=== PATIENT | female | born 1945 | race Caucasian/White ===

== ENCOUNTER 2022-01-26 13:23 | Inpatient (IN) | payer MEDICARE, OTHER ==
[~2022-01-26] VITALS: Ht 152.4 cm; Wt 48.5 kg
--- NOTE | 2022-01-26 13:30 | NUR ---
COVID SWAB DONE AND SENT TO LAB
--- NOTE | 2022-01-26 13:35 | NUR ---
BLOOD SAMPLES OBTAINED AND SENT TO LAB
[2022-01-26] MEDS ORDERED: CRAN425C6 PO (13:57)
[2022-01-26] MEDS ORDERED: FERR325T23 PO (13:57)
[2022-01-26] MEDS ORDERED: DIPH25CA51 PO (13:57)
[2022-01-26] MEDS ORDERED: IPRA3AMP23 IH (13:57)
[2022-01-26] MEDS ORDERED: PANT40TA49 PO (13:57)
[2022-01-26] MEDS ORDERED: ACET-868 PO (13:57)
[2022-01-26] MEDS ORDERED: GABA-532 PO (13:57)
[2022-01-26] MEDS ORDERED: LOSA100T31 PO (13:57)
[2022-01-26] MEDS ORDERED: ACET-2605 PO (13:57)
[2022-01-26] MEDS ORDERED: BACL10TA PO ×2 (13:57)
[2022-01-26] MEDS ORDERED: CICL6.6S5 TP (13:57)
[2022-01-26] MEDS ORDERED: POLY17PO4 PO (13:57)
[2022-01-26] MEDS ORDERED: DULO60CA64 PO (13:57)
[2022-01-26] MEDS ORDERED: LACT1CAP71 PO (13:57)
[2022-01-26] MEDS ORDERED: GUAI400T93 PO (13:57)
[2022-01-26] MEDS ORDERED: SENN-261 PO (13:57)
[2022-01-26] MEDS ORDERED: VERA240T14 PO (13:57)
[2022-01-26] MEDS ORDERED: MELA1TAB47 PO (13:57)
[2022-01-26] MEDS ORDERED: BUPR2TAB3 SL (13:57)
[2022-01-26] MEDS ORDERED: POTA20TA83 PO (13:57)
[2022-01-26] MEDS ORDERED: BENZ200C53 PO (13:57)
[2022-01-26] MEDS ORDERED: CRAN3875 PO (13:57)
[2022-01-26] MEDS ORDERED: LIDO30AD10 TP (13:57)
[2022-01-26 14:02] LABS: BASOPHILS # (AUTO) 0.1 K/uL (0.0-0.2); BASOPHILS % (AUTO) 0.3 % (0.0-2.0); HEMATOCRIT 37 % (33-45); HEMOGLOBIN 12.2 g/dL (11.5-14.8); LYMPHOCYTES # (AUTO) 4.3 K/uL (0.8-4.8); LYMPHOCYTES % (AUTO) 14.4 % (20.0-44.0); MEAN CORPUSCULAR HGB CONC 33 g/dl (31.0-36.0); MEAN CORPUSCULAR VOLUME 100 fL (82-100); MONOCYTES # (AUTO) 3.1 K/uL (0.1-1.30); MONOCYTES % (AUTO) 10.4 % (2.0-12.0); NEUTROPHILS # (AUTO) 22.2 K/uL (1.8-8.9); NEUTROPHILS % (AUTO) 74.9 % (43.0-81.0); PLATELET COUNT (AUTO) 453 K/uL (150-450); RED BLOOD CELL COUNT(AUTO) 3.73 MIL/uL (4.0-5.2); WHITE BLOOD COUNT (AUTO) 29.6 K/uL (4.3-11.0)
[2022-01-26 14:11] LABS: CALCIUM, SERUM 8.4 mg/dL (8.5-10.1); CARBON DIOXIDE 26 mmol/L (21-32); CHLORIDE 106 mmol/L (98-107); CREATININE 1.4 mg/dL (0.6-1.3); GLUCOSE 135 mg/dL (74-106); POTASSIUM 3.1 mmol/L (3.5-5.1); SODIUM SERUM 145 mmol/L (136-145); UREA NITROGEN, BLOOD 21 mg/dL (7-18)
[2022-01-26 14:26] LABS: ALANINE AMINOTRANSFERASE 14 U/L (12-78); ALBUMIN 2.8 g/dL (3.4-5.0); ALKALINE PHOSPHATASE 131 U/L (46-116); ASPARTATE AMINOTRANSFERASE 20 U/L (15-37); BILIRUBIN,DIRECT 0.3 mg/dL (0.0-0.2); BILIRUBIN,TOTAL 0.8 mg/dL (0.2-1.0); TOTAL PROTEIN, SERUM 7.3 g/dL (6.4-8.2)
[2022-01-26] MEDS ORDERED: VANCOMYCIN 1 GM in IV D5W 250 ML IV ONE (14:30)
[2022-01-26] MEDS ORDERED: IV NS 0.9% 1,000 ML BAG IV ONE (14:30)
[2022-01-26] MEDS ORDERED: CEFEPIME 1 GM in IV D5W 50 ML IV ONE (14:30)
--- NOTE | 2022-01-26 14:57 | NUR ---
URINE COLLECTED AND SENT TO LAB
[2022-01-26] MEDS ORDERED: PIPERACILLIN /TAZOBACTAM 3.375 G in IV D5W 50 ML IV ONE (15:00)
[2022-01-26] MEDS ORDERED: MAG HYDROX/AL HYDROX/SIMETH 30 ML UDC PO PRN (16:30)
[2022-01-26] MEDS ORDERED: Medication Not On Formulary EA (Melatonin 1 MG) PO PRN (16:30)
[2022-01-26] MEDS ORDERED: ACETAMINOPHEN ES 500 MG TABLET PO PRN ×2 (16:30)
[2022-01-26] MEDS ORDERED: Z GUARD REMEDY 4 OZ OINT TP PRN (16:30)
[2022-01-26] MEDS ORDERED: ONDANSETRON HCL/PF 4 MG/2 ML VIAL IVP PRN (16:30)
[2022-01-26] MEDS ORDERED: CEFEPIME 1 GM in IV D5W 50 ML IV SCH (16:30)
[2022-01-26] MEDS ORDERED: MAGNESIUM HYDROXIDE 30 ML UDC PO PRN (16:30)
[2022-01-26] MEDS ORDERED: ZOLPIDEM TARTRATE 5 MG TABLET PO PRN (16:30)
[2022-01-26] MEDS ORDERED: ACETAMINOPHEN 325 MG TABLET PO PRN (16:30)
--- NOTE | 2022-01-26 16:40 | NUR ---
RT SUCTIONED PT, PT FABY WELL. PT TO CT VIA RSONDRA
--- NOTE | 2022-01-26 16:57 | NUR ---
CALLED NURSING SUP FOR MERE BED.
[2022-01-26] MEDS ORDERED: BUPRENORPHINE HCL 2 MG TAB.SUBL SL SCH (17:00)
[2022-01-26] MEDS ORDERED: Medication Not On Formulary EA (Cran/Vitc/Mannose/Inulin/Brom (Uti-Stat Liquid) 3,875 MG PO SCH (17:00)
--- NOTE | 2022-01-26 17:00 | NUR ---
PT RR EVEN & UNLABORED. PT EYES CLOSED WILL OPEN WITH VERBAL STIMULI. ON TELE, ST. WILL CONT TO MONITOR.
[2022-01-26 17:21] LABS: ABG BASE EXCESS -6.3 mmol/L; ABG PCO2 38.9 mmHg (35.0-45.0); ABG PH 7.315 (7.350-7.450); ABG PO2 109.7 mmHg (75.0-100.0); COHb 0.3 % (0.5-1.5); MetHb 0.3 % (0.0-1.5); O2Hb 97.1 % (94.0-97.0); SITE, ABG Right Radial
[2022-01-26] MEDS ORDERED: HYDROMORPHONE MDV 1 MG in IV D5W 50 ML IV PRN (17:30)
[2022-01-26] MEDS ORDERED: LIDOCAINE VISCOUS 2% UD 15 ML UDC MM ONE (17:30)
--- NOTE | 2022-01-26 17:35 | NUR ---
RT PT DESATTING SUCTIONED THICK WHILE COPIOUS AMOUNT OF SECRETIONS TO KEEP SATS OVER 90%, NOSE BLEEDING FROM NT SX, ATTEMPTED TO PLACE NASAL TRUMPET, UNSUCCESSFUL ASKED FOR LIDOCAINE JELLY ORDER, ABG DONE SEE RESULTS
[2022-01-26] MEDS ORDERED: HYDROMORPHONE 1 MG/1 ML DISP.SYRIN ONE (17:37)
[2022-01-26] MEDS ORDERED: LIDOCAINE VISCOUS 2% UD 15 ML UDC ONE (17:37)
--- NOTE | 2022-01-26 17:52 | NUR ---
UPDATED NURSING SUP FOR TELE BED.
[2022-01-26] MEDS ORDERED: Medication Not On Formulary EA (Ipratropium/Albuterol Sulfate (Duoneb 2.5-0.5 Mg/3 Ml So IH SCH (18:00)
[2022-01-26] MEDS ORDERED: HYDROMORPHONE 1 MG/1 ML DISP.SYRIN IV ONE (18:00)
[2022-01-26 18:28] LABS: BILIRUBIN,URINE NEGATIVE (NEGATIVE); COLOR,URINE YELLOW (YELLOW); LEUKOCYTE ESTERASE ,URINE NEGATIVE (NEGATIVE); NITRITE, URINE NEGATIVE (NEGATIVE); PROTEIN,URINE NEGATIVE (NEGATIVE); UGLUCOSE NEGATIVE (NEGATIVE); UROBILINOGEN,URINE 0.2 EU/dL (0.2)
--- NOTE | 2022-01-26 18:43 | NUR ---
NURSING SUP WILL GIVE BED AFTER 1999 DUE TO STAFFING.
--- NOTE | 2022-01-26 19:45 | NUR ---
RECEIVED REPORT FROM CATALINA CASTRO FOR BRIGIDO
[2022-01-26] MEDS ORDERED: ALBUTEROL FS 2.5 MG/0.5 ML VIAL.NEB ONE (19:52)
[2022-01-26] MEDS ORDERED: IPRATROPIUM NEB FS 0.5 MG/2.5 ML AMPUL.NEB ONE (19:52)
[2022-01-26] MEDS: IPRATROPIUM NEB FS 0.5 MG/2.5 ML AMPUL.NEB NEB SCH (19:59)
[2022-01-26] MEDS: ALBUTEROL FS 2.5 MG/0.5 ML VIAL.NEB NEB SCH (19:59)
[2022-01-26] MEDS: BACLOFEN (10 MG) 10 MG TABLET PO SCH (20:00)
--- NOTE | 2022-01-26 20:03 | NUR ---
RT nt suction performed. copius thick yellow secretions suctioned, followed by some bleeding, due to desaturation. post saturation 99%. pt doing well. rn aware.
--- NOTE | 2022-01-26 20:03 | NUR ---
PT RESTING CONFORTABLY IN BED, AAOX4. O2 SAT 97. BLANKETS PROVIDED FOR CONFORT. PT DENIES ANY PAIN. WILL CONTINUE TO MONITOR
--- NOTE | 2022-01-26 20:12 | NUR ---
MAGALYS BROWN DAUGHTER - [phone]
[2022-01-26] MEDS ORDERED: BACLOFEN (10 MG) 10 MG TABLET ONE (20:25)
[2022-01-26] MEDS ORDERED: GABAPENTIN 300 MG CAPSULE ONE (21:22)
[2022-01-26] MEDS: GABAPENTIN 100 MG CAPSULE PO SCH (21:25)
[2022-01-26] MEDS: VERAPAMIL SR 120 MG TABLET.SA PO SCH (21:34)
[2022-01-26] MEDS: LOSARTAN POTASSIUM 50 MG TABLET PO SCH (22:00)
[2022-01-26] MEDS ORDERED: LOSARTAN POTASSIUM 50 MG TABLET ONE (22:22)
[2022-01-26] MEDS ORDERED: DULOXETINE HCL 30 MG CAPSULE.DR ONE (22:23)
--- NOTE | 2022-01-26 22:31 | NUR ---
LOSARTAN HELD, NON ADMIN DUE TO BP OF 105/64 NOTED
[2022-01-26] MEDS: DULOXETINE HCL 30 MG CAPSULE.DR PO SCH (22:40)
--- NOTE | 2022-01-26 22:54 | NUR ---
REPORT GIVEN TO IDALIA CASTRO FOR BRIGIDO
--- NOTE | 2022-01-26 23:00 | NUR ---
APPLICATIONS PROGRAMMER NOTE ADMIT 77 YEAR OLD FEMALE TO MERE UNIT AT ROOM 104 ON MERE MONITORING,ADMITTING DIAGNOSES IS SEPSIS ALERT ORIENTED X2 VERBALLY RESPONSIVE ON 15 LITER NON RE BREATHER MASK O2:90-91% IV SITE IS ON LEFT AC AND RIGHT FOREARM INTACT PATENT SAFETY MEASURE IMPLEMENT,HEAD OF THE BED ELEVATED BED IN LOW POSITION AND LOCKED,CALL LIGHT WITHIN REACH CONTINUE TO MONITOR.
--- NOTE | 2022-01-26 23:02 | NUR ---
RN NOTE PATIENT BILATERAL LOWER AND UPPER EXTERMINATES ARE CONTRACTED,CONTINUE TO MONITOR.
[2022-01-26] MEDS: IV NS 0.9% 1,000 ML IV PRN (23:44)
[2022-01-27] VITALS: BP_SYST 119; BP_SYST 91; BP_DIAS 52; BP_DIAS 72
[2022-01-27] MEDS: IPRATROPIUM NEB FS 0.5 MG/2.5 ML AMPUL.NEB NEB SCH ×4 (02:11→20:49)
[2022-01-27] MEDS: ALBUTEROL FS 2.5 MG/0.5 ML VIAL.NEB NEB SCH ×4 (02:11→20:48)
[2022-01-27 04:00] VITALS: BP 96/57
[2022-01-27 06:10] LABS: BASOPHILS % (AUTO) 0.2 % (0.0-2.0); HEMATOCRIT 31 % (33-45); HEMOGLOBIN 10.5 g/dL (11.5-14.8); LYMPHOCYTES # (AUTO) 1.8 K/uL (0.8-4.8); LYMPHOCYTES % (AUTO) 7.8 % (20.0-44.0); MEAN CORPUSCULAR HGB CONC 34 g/dl (31.0-36.0); MEAN CORPUSCULAR VOLUME 101 fL (82-100); MONOCYTES # (AUTO) 2.8 K/uL (0.1-1.30); MONOCYTES % (AUTO) 11.8 % (2.0-12.0); NEUTROPHILS # (AUTO) 18.8 K/uL (1.8-8.9); NEUTROPHILS % (AUTO) 80.2 % (43.0-81.0); PLATELET COUNT (AUTO) 362 K/uL (150-450); WHITE BLOOD COUNT (AUTO) 23.5 K/uL (4.3-11.0)
[2022-01-27 06:13] LABS: CALCIUM, SERUM 7.3 mg/dL (8.5-10.1); MAGNESIUM 1.4 mg/dL (1.8-2.4); PHOSPHORUS 3.7 mg/dL (2.5-4.9)
--- NOTE | 2022-01-27 07:15 | NUR ---
RN NOTE PATIENT REMAINS ON ALERT ORIENTED X2 ON 15 L NON RE BREATHER MASK O2:98% ALL DUE MEDS GIVEN MD ORDERED KEPT CLEAN AND DRY ALL THE TIME,ALL NEEDS MET ENDORSE NEXT COMING SHIFT FOR CONTINUATION OF CARE.
[2022-01-27] MEDS: PANTOPRAZOLE 40 MG TABLET.DR PO SCH (07:30)
--- NOTE | 2022-01-27 07:30 | NUR ---
TD RN AM NOTES PT IN BED, LETHARGIC, RESPONDS TO TOUCH AND NAME, A/OX1, FOLLOWS SIMPLE COMMANDS, ON 15 NRM O2 SAT 97%, RESPIRATION UNLABORED, NO SIGNS OF PAIN, LEFT AC 18 G WITH NS AT 90 ML/HR INFUSING WELL, RT FA 18G IV ACCESS FLUSHES WELL, BOTH SITE CLEAR, BED BOUND, SEE NURSING FLOWSHEET FOR SKIN ISSUES. BLE EXTREMITIES, CONTRACTED. SAFETY MEASURES IN PLACE, PATIENT BED ALARM IS ON. HEAD OF BED ELEVATED. BED IS LOCKED, IN LOWEST POSITION AND SIDE RAILS UP. CALL LIGHT WITHIN REACH OF THE PATIENT. APPLICABLE ISOLATION PRECAUTIONS IN PLACE. WILL CONTINUE TO MONITOR AND REASSESS FOR ANY CHANGES AND WILL CARRY OUT ANY ONGOING AND ACTIVE MD ORDER.
[2022-01-27 08:00] VITALS: BP 94/57
[2022-01-27] MEDS: ACIDOPHILUS/BULGARICUS 1 EACH TAB.CHEW PO SCH (08:27)
[2022-01-27] MEDS: FERROUS SULFATE (325 MG) 325 MG/TAB TABLET PO SCH (08:27)
[2022-01-27] MEDS: BACLOFEN (10 MG) 10 MG TABLET PO SCH ×2 (08:27→17:35)
[2022-01-27] MEDS: POLYETHYLENE GLYCOL 3350 17 GM POWD.PACK PO SCH (08:28)
[2022-01-27] MEDS: VERAPAMIL SR 120 MG TABLET.SA PO SCH ×2 (08:28→21:00)
[2022-01-27] MEDS: GABAPENTIN 100 MG CAPSULE PO SCH ×2 (08:28→21:00)
[2022-01-27] MEDS: SENNOSIDES 8.6 MG TABLET PO SCH (08:28)
[2022-01-27] MEDS: VANCOMYCIN 500 MG in IV D5W 100ml IV SCH (08:29)
[2022-01-27] MEDS: LIDOCAINE 5% (PATCH) 1 EA PATCH TP SCH (08:41)
--- NOTE | 2022-01-27 09:30 | NUR ---
RN NOTES PER YAQUELIN BUCK NP PATIENT NPO UNTIL SWALLOW EVAL DONE
[2022-01-27] MEDS: POTASSIUM CL. PREMIX PERIPHER. 50 ML IV SCH ×6 (10:40→15:51)
[2022-01-27] MEDS: Magnesium 1GM/D5W 100ML PREMIX 100 ML IV SCH ×4 (10:40→13:43)
[2022-01-27] MEDS: ENOXAPARIN SODIUM 30 MG/0.3 ML DISP.SYRIN SQ SCH (10:51)
[2022-01-27] MEDS: IV NS 0.9% 1,000 ML IV PRN (11:22)
[2022-01-27 12:00] VITALS: BP 98/44
[2022-01-27] MEDS: CEFEPIME 2 GM in IV D5W 100 ML IV SCH (15:51)
[2022-01-27 16:00] VITALS: BP 84/55
[2022-01-27 17:00] VITALS: BP 84/55
--- NOTE | 2022-01-27 18:26 | NUR ---
TD RN CLOSING NOTES PT IN BED, LETHARGIC, RESPONDS TO TOUCH AND NAME, A/OX1, FOLLOWS SIMPLE COMMANDS, ON 15 NRM O2 SAT 94%-96%, RESPIRATION UNLABORED, NO SIGNS OF PAIN, LEFT AC 18 G WITH NS AT 90 ML/HR INFUSING WELL, RT FA 18G IV ACCESS FLUSHES WELL, BOTH SITE CLEAR, BED BOUND, BLE EXTREMITIES, CONTRACTED. SAFETY MEASURES IN PLACE, PATIENT BED ALARM IS ON. HEAD OF BED ELEVATED. BED IS LOCKED, IN LOWEST POSITION AND SIDE RAILS UP. CALL LIGHT WITHIN REACH OF THE PATIENT. APPLICABLE ISOLATION PRECAUTIONS IN PLACE. PM CARE DONE EARLIER. ALL NEEDS MET AT THIS TIME. WILL ENDORSE TO NEXT SHIFT FOR BRIGIDO. PATIENT REMAINS TO BE SEEN BY SPEECH THERAPIST FOR SWALLOW EVAL. PER YAQUELIN BUCK, IF FAILED SWALLOW EVAL, MAY INSERT NGT FOR FEEDING AND MEDICATIONS.
[2022-01-27] MEDS: DULOXETINE HCL 30 MG CAPSULE.DR PO SCH (22:00)
[2022-01-27] MEDS: LOSARTAN POTASSIUM 50 MG TABLET PO SCH (22:00)
--- NOTE | 2022-01-27 22:00 | NUR ---
RN NOTES, PO MEDICATIONS NOT ADMINISTERED, PATIENT NPO, WILL HAVE SWALLOW EVALUATION TOMORROW, PATIENT IN NRM AT 15LPM, WITH OPTIMAL O2 SAT, FLUCTUATES THE LOWEST I'VE SEEN 87-95, NO SOB/DISTRESS AT THIS TIME, BUT DESATURATES QUICKLY, BED LOCKED AND LOWEST POSITION, CALL LIGHT W/I REACH, S/R BED X2 UP, PATIENT DRY AND CLEAN, WILL CONTINUE TO MONITOR CLOSELY,
[2022-01-28] VITALS (10 sets, daily range): BP systolic 98–151; BP diastolic 57–76
[2022-01-28] MEDS: ALBUTEROL FS 2.5 MG/0.5 ML VIAL.NEB NEB SCH ×4 (01:36→20:22)
[2022-01-28] MEDS: IPRATROPIUM NEB FS 0.5 MG/2.5 ML AMPUL.NEB NEB SCH ×4 (01:36→20:22)
[2022-01-28] MEDS: VANCOMYCIN 500 MG in IV D5W 100ml IV SCH ×2 (03:16→21:06)
[2022-01-28] MEDS: IV NS 0.9% 1,000 ML IV PRN ×2 (04:43→16:20)
--- NOTE | 2022-01-28 06:45 | NUR ---
TD RN CLOSING NOTES, PATIENT IN BED, AWAKE A/OX2, ABLE TO VERBALIZE SIMPLE NEEDS, ON 15 NRM O2 SAT 94%-100%, NO SOB/ACUTE DISTRESS NOTED THROUGHOUT THE NIGHT, NSR IN TELE MONITOR RT FA 18G IV ACCESS PATENT AND INTACT, REMAINS STABLE ON NRM AT 15LPM, WITH STABLE VITAL SIGN, ALL SAFETY MEASURES IN PLACE, PATIENT BED ALARM IS ON. HEAD OF BED ELEVATED, BED IS LOCKED AND LOWEST POSITION , AND SIDE RAILS UP X2, CALL LIGHT WITHIN REACH, CONTINUE NPO, WILL HAVE SWALLOW EVAL TODAY, WILL ENDORSE CONTINUITY OF CARE TO ONCOMING NURSE.
[2022-01-28 07:10] LABS: CALCIUM, SERUM 8.3 mg/dL (8.5-10.1); CREATININE 0.7 mg/dL (0.6-1.3); MAGNESIUM 2.6 mg/dL (1.8-2.4); POTASSIUM 3.4 mmol/L (3.5-5.1)
[2022-01-28 07:24] LABS: BASOPHILS % (AUTO) 0.1 % (0.0-2.0); HEMATOCRIT 32 % (33-45); HEMOGLOBIN 10.9 g/dL (11.5-14.8); LYMPHOCYTES # (AUTO) 1.1 K/uL (0.8-4.8); LYMPHOCYTES % (AUTO) 6.3 % (20.0-44.0); MEAN CORPUSCULAR HGB CONC 34 g/dl (31.0-36.0); MEAN CORPUSCULAR VOLUME 104 fL (82-100); MONOCYTES # (AUTO) 1.6 K/uL (0.1-1.30); MONOCYTES % (AUTO) 9.1 % (2.0-12.0); NEUTROPHILS # (AUTO) 14.7 K/uL (1.8-8.9); NEUTROPHILS % (AUTO) 84.5 % (43.0-81.0); PLATELET COUNT (AUTO) 417 K/uL (150-450); RED BLOOD CELL COUNT(AUTO) 3.08 MIL/uL (4.0-5.2); WHITE BLOOD COUNT (AUTO) 17.4 K/uL (4.3-11.0)
[2022-01-28] MEDS: PANTOPRAZOLE 40 MG TABLET.DR PO SCH (07:30)
--- NOTE | 2022-01-28 08:00 | NUR ---
MERE RN NOTE PATIENT IN BED AWAKE , ALERT ORIENTED WITH CONFUSION , ON 5L NC AT THIS TIME RT AT BEDSIDE SATURATING 93-95%, ON BREATHING TX , ON TELE MONITOR SR HR 86, ON NPO AT THIS TIME ON IVF ORDERED, BED IN LOWEST AND LOCKED POSITION , WILL CONT TO MONITOR CLOSELY, CALL LIGHT WITHIN REACH
--- NOTE | 2022-01-28 08:05 | NUR ---
pt. is awake and alert changed oxygen setup from non rebreather to nasal cannula @ 5 lpm o2 flow and nasally suctioned very large amount pale yellow thick secretions. spo2 after sxn: 95% hr 90 bpm and no increase work of breathing noted. Addendum: 01/28/22 at 0808 by SCOTTIE COTTO RT Amended: Links added.
[2022-01-28] MEDS: VERAPAMIL SR 120 MG TABLET.SA PO SCH ×2 (09:00→21:07)
[2022-01-28] MEDS: ACIDOPHILUS/BULGARICUS 1 EACH TAB.CHEW PO SCH (09:00)
[2022-01-28] MEDS: ENOXAPARIN SODIUM 30 MG/0.3 ML DISP.SYRIN SQ SCH (09:00)
[2022-01-28] MEDS: GABAPENTIN 100 MG CAPSULE PO SCH ×2 (09:00→21:06)
[2022-01-28] MEDS: BACLOFEN (10 MG) 10 MG TABLET PO SCH ×2 (09:00→17:44)
[2022-01-28] MEDS: FERROUS SULFATE (325 MG) 325 MG/TAB TABLET PO SCH (09:00)
[2022-01-28] MEDS: SENNOSIDES 8.6 MG TABLET PO SCH (09:00)
[2022-01-28] MEDS: POLYETHYLENE GLYCOL 3350 17 GM POWD.PACK PO SCH (09:00)
--- NOTE | 2022-01-28 09:00 | NUR ---
analytical lab analyst notes Rt at bedside, nasalpharyngeal suction done, large amount of yellow thick secretions, placed on 5 liter via nasal cannula, o2 sat 93%,DR Carrasco made round,updated patient condition
[2022-01-28] MEDS: LIDOCAINE 5% (PATCH) 1 EA PATCH TP SCH (09:15)
[2022-01-28] MEDS ORDERED: APIXABAN 5 MG TABLET PO SCH (09:30)
[2022-01-28] MEDS: POTASSIUM CL. PREMIX PERIPHER. 50 ML IV SCH ×2 (10:44→11:50)
--- NOTE | 2022-01-28 11:00 | NUR ---
HOUSEKEEPING ASSISTANT NOTE DR GUTIERRES AT BEDSIDE AWARE THAT PATIENT STILL NPO WILL F\U WITH ST
--- NOTE | 2022-01-28 12:39 | NUR ---
teletype operator note called to st stated that will came sometimes today spoke with ronny
--- NOTE | 2022-01-28 13:12 | NUR ---
RIGGING SUPERVISOR NOTE AWAITING FOR ST FOR SWALLOW EVAL
--- NOTE | 2022-01-28 14:50 | NUR ---
spar machine operator note nursing swallow ryan done patient is able to eat puree diet, spoke to DR Robert with order of puree diet, still awaiting for ST to evaluate the patient Addendum: 01/28/22 at 1527 by AYLA BAILEY RN SPOKE WITH RAÚL PRINCIPAL BIOINFORMATICS SPECIALIST OF ST ,STATED THAT ST NOT AVAILABLE YET WILL F\U
[2022-01-28] MEDS: CEFEPIME 2 GM in IV D5W 100 ML IV SCH (15:10)
--- NOTE | 2022-01-28 17:53 | NUR ---
telegraphic typewriter operator note able to swallow puree diet, with occasional cough , ate 15% of diet
--- NOTE | 2022-01-28 18:40 | NUR ---
hydroelectric plant maintainer closing notes PT IN BED awake, A/OX1,-2FOLLOWS SIMPLE COMMANDS, ON 15 NRM O2 SAT 94%-96%, RESPIRATION UNLABORED, NO SIGNS OF PAIN, LEFT AC 18 G WITH NS AT 90 ML/HR INFUSING WELL, RT FA 18G IV ACCESS FLUSHES WELL, BOTH SITE CLEAR, BED BOUND, BLE EXTREMITIES, CONTRACTED. SAFETY MEASURES IN PLACE, PATIENT BED ALARM IS ON. HEAD OF BED ELEVATED. BED IS LOCKED, IN LOWEST POSITION AND SIDE RAILS UP. CALL LIGHT WITHIN REACH OF THE PATIENT. APPLICABLE ISOLATION PRECAUTIONS IN PLACE. PM CARE DONE EARLIER. awaiting for [facility], nursing swallow eval done patient was able to eat puree dinner.ALL NEEDS MET AT THIS TIME. WILL ENDORSE TO NEXT SHIFT FOR BRIGIDO.
--- NOTE | 2022-01-28 19:43 | NUR ---
RN OPENING NOTES RECEIVED PT IN BED, AWAKE. AOx2-3. ON 5LPM VIA NC AND TOLERATING WELL. NO SOB NOTED. NO S/SX OF RESPIRATORY DISTRESS NOTED. TELE MONITOR DETECTS SINUS RHYTHM AND SINUS TACHYCARDIA. IV ACCESS IN RAC #18 RUNNING NS @ 90 ML/HR. SAFETY PRECAUTIONS IN PLACE: BED IN LOWEST, LOCKED POSITION, SIDERAILS UPx2, AND BRAKES ON. TABLE AND CALL LIGHT WITHIN REACH. WILL CONTINUE TO MONITOR.
[2022-01-28] MEDS: LOSARTAN POTASSIUM 50 MG TABLET PO SCH (21:07)
[2022-01-28] MEDS: DULOXETINE HCL 30 MG CAPSULE.DR PO SCH (21:07)
[2022-01-28] MEDS: ENOXAPARIN SODIUM 60 MG/0.6 ML DISP.SYRIN SQ SCH (21:09)
[2022-01-29] MEDS: ALBUTEROL FS 2.5 MG/0.5 ML VIAL.NEB NEB SCH ×5 (01:30→19:55)
[2022-01-29] MEDS: IPRATROPIUM NEB FS 0.5 MG/2.5 ML AMPUL.NEB NEB SCH ×5 (01:30→19:55)
[2022-01-29 05:00] VITALS: BP 100/55
[2022-01-29] MEDS: IV NS 0.9% 1,000 ML IV PRN ×2 (05:36→17:10)
[2022-01-29 06:12] LABS: CALCIUM, SERUM 8.1 mg/dL (8.5-10.1); CREATININE 0.6 mg/dL (0.6-1.3); POTASSIUM 3.5 mmol/L (3.5-5.1)
--- NOTE | 2022-01-29 06:51 | NUR ---
RN CLOSING NOTES PT IN BED, AWAKE. AOx2-3. ON 10LPM VIA NC AND TOLERATING WELL. NO SOB NOTED. NO S/SX OF RESPIRATORY DISTRESS NOTED. TELE MONITOR DETECTS SINUS RHYTHM AND SINUS TACHYCARDIA. IV ACCESS IN RHAND #22G RUNNING NS @ 90 ML/HR. ALL NEEDS MET. PT KEPT CLEAN AND DRY. SAFETY PRECAUTIONS IN PLACE: BED IN LOWEST, LOCKED POSITION, SIDERAILS UPx2, AND BRAKES ON. TABLE AND CALL LIGHT WITHIN REACH. WILL ENDORSE TO ONCOMING SHIFT FOR BRIGIDO.
[2022-01-29] MEDS: PANTOPRAZOLE 40 MG TABLET.DR PO SCH (07:30)
--- NOTE | 2022-01-29 07:54 | NUR ---
RN OPENING NOTE PATIENT RECEIVED IN BED, AO X 2, IN NO ACUTE DISTRESS NOTED. RESPIRATORY EVEN AND UNLABORED ON TRACH AND VENTILATOR. SKIN IS WARM TO TOUCH, KEEP CLEAN/DRY, INTACT IV SITE. KEPT ELEVATED HOB FOR ENSURE AIRWAY AND ASPIRATION PRECAUTION, ALSO LOWEST POSITION OF THE BED, S/R UP X 3 FOR SAFETY. ALL SAFETY PRECAUTION APPLIED. CALL LIGHT WITHIN REACH, WILL CONTINUE TO MONITOR. Addendum: 01/29/22 at 0801 by VANESA CA RN ERROR
--- NOTE | 2022-01-29 08:01 | NUR ---
RN OPENING NOTE PATIENT RECEIVED IN BED, AO X 2, IN NO ACUTE DISTRESS NOTED. RESPIRATORY EVEN AND UNLABORED ON OXYGEN AT 5Ls VIA NC. SKIN IS WARM TO TOUCH, KEEP CLEAN/DRY, INTACT IV SITE. KEPT ELEVATED HOB FOR ENSURE AIRWAY AND ASPIRATION PRECAUTION, ALSO LOWEST POSITION OF THE BED, S/R UP X 3 FOR SAFETY. ALL SAFETY PRECAUTION APPLIED. CALL LIGHT WITHIN REACH, WILL CONTINUE TO MONITOR.
[2022-01-29 09:00] VITALS: BP 127/65
[2022-01-29] MEDS: GABAPENTIN 100 MG CAPSULE PO SCH ×2 (09:00→20:15)
[2022-01-29] MEDS: VERAPAMIL SR 120 MG TABLET.SA PO SCH ×2 (09:00→20:25)
[2022-01-29] MEDS: ACIDOPHILUS/BULGARICUS 1 EACH TAB.CHEW PO SCH (09:00)
[2022-01-29] MEDS: ENOXAPARIN SODIUM 60 MG/0.6 ML DISP.SYRIN SQ SCH (09:00)
[2022-01-29] MEDS: POLYETHYLENE GLYCOL 3350 17 GM POWD.PACK PO SCH (09:00)
[2022-01-29] MEDS: BACLOFEN (10 MG) 10 MG TABLET PO SCH ×2 (09:00→17:05)
[2022-01-29] MEDS: FERROUS SULFATE (325 MG) 325 MG/TAB TABLET PO SCH (09:00)
[2022-01-29] MEDS: SENNOSIDES 8.6 MG TABLET PO SCH (09:00)
--- NOTE | 2022-01-29 09:56 | NUR ---
PATIENT HAS NOT BEEN SWALLOW EVALUATION. WILL HOLD MED BY PHARMACY.
[2022-01-29] MEDS: LIDOCAINE 5% (PATCH) 1 EA PATCH TP SCH (10:00)
[2022-01-29 10:44] LABS: BASOPHILS % (AUTO) 0.3 % (0.0-2.0); EOSINOPHILS % (AUTO) 0.1 % (0.0-6.0); HEMATOCRIT 28 % (33-45); HEMOGLOBIN 9.2 g/dL (11.5-14.8); LYMPHOCYTES # (AUTO) 1.4 K/uL (0.8-4.8); LYMPHOCYTES % (AUTO) 9.2 % (20.0-44.0); MEAN CORPUSCULAR HGB CONC 33 g/dl (31.0-36.0); MEAN CORPUSCULAR VOLUME 99 fL (82-100); MONOCYTES # (AUTO) 1.2 K/uL (0.1-1.30); MONOCYTES % (AUTO) 7.9 % (2.0-12.0); NEUTROPHILS # (AUTO) 12.5 K/uL (1.8-8.9); NEUTROPHILS % (AUTO) 82.5 % (43.0-81.0); PLATELET COUNT (AUTO) 433 K/uL (150-450); RED BLOOD CELL COUNT(AUTO) 2.85 MIL/uL (4.0-5.2); WHITE BLOOD COUNT (AUTO) 15.1 K/uL (4.3-11.0)
[2022-01-29 10:55] LABS: CALCIUM, SERUM 7.2 mg/dL (8.5-10.1); CARBON DIOXIDE 22 mmol/L (21-32); CHLORIDE 113 mmol/L (98-107); CREATININE 0.5 mg/dL (0.6-1.3); GLUCOSE 104 mg/dL (74-106); POTASSIUM 2.9 mmol/L (3.5-5.1); SODIUM SERUM 142 mmol/L (136-145); UREA NITROGEN, BLOOD 16 mg/dL (7-18)
[2022-01-29 11:05] LABS: ALANINE AMINOTRANSFERASE 16 U/L (12-78); ALKALINE PHOSPHATASE 86 U/L (46-116); ASPARTATE AMINOTRANSFERASE 20 U/L (15-37); BILIRUBIN,TOTAL 0.7 mg/dL (0.2-1.0); TOTAL PROTEIN, SERUM 5.6 g/dL (6.4-8.2)
--- NOTE | 2022-01-29 11:33 | NUR ---
ST Bedside swallow evaluation completed: Recommending: pureed and nectar no straws meds: crushed with pureed. Follow aspiration precautions
--- NOTE | 2022-01-29 12:45 | NUR ---
PATIENT NOTED POTASSIUM LEVEL IS 2.9, ,SLIME AWARE AND NEW ORDER:40 MEQ PO X 1. NOTED AND CARRY OUT.
[2022-01-29 13:00] VITALS: BP 127/65
[2022-01-29] MEDS ORDERED: POTASSIUM CHLORIDE 20 MEQ TAB.PRT.SR PO ONE (13:00)
[2022-01-29] MEDS: VANCOMYCIN 0.75 GM in IV D5W 250 ML IV SCH (15:26)
[2022-01-29 16:18] VITALS: BP 131/80
[2022-01-29] MEDS: CEFEPIME 2 GM in IV D5W 100 ML IV SCH (17:04)
[2022-01-29 18:00] VITALS: BP 131/80
--- NOTE | 2022-01-29 18:55 | NUR ---
RN CLOSING NOTE PATENT IN BED, REMAINS, IN NO ACUTE DISTRESS OBSERVED. RESPIRATORY EVEN AND UNLABORED ON T PIECE. SKIN IS WARM TO TOUCH KEEP CLEAN/DRY, INTACT IV SITE. NEPHRO TUBE CONNECTING TO THE URINE BAG, 700ML OUT PUT. KEPT ELEVATE HOB FOR ASPIRATION PRECAUTION AND ENSURE AIRWAY, ALSO LOWEST POSITION OF THE BED FOR SAFETY. CALL LIGHT WITHIN REACH, WILL ENDORSE TO CLERICAL ADVISER.
--- NOTE | 2022-01-29 18:57 | NUR ---
RN CLOSING NOTE PATENT IN BED, REMAINS AO X 2, IN NO ACUTE DISTRESS OBSERVED. RESPIRATORY EVEN AND UNLABORED ON ROOM AIR AT 3Ls. SKIN IS WARM TO TOUCH KEEP CLEAN/DRY, INTACT IV SITE. KEPT ELEVATE HOB FOR ASPIRATION PRECAUTION AND ENSURE AIRWAY, ALSO LOWEST POSITION OF THE BED FOR SAFETY. CALL LIGHT WITHIN REACH, WILL ENDORSE TO FUNERAL HOME ASSOCIATE.
--- NOTE | 2022-01-29 19:30 | NUR ---
RN NOTES RECEIVED PATIENT AWAKE ON BED, A/OX2, SISTER AT BEDSIDE, , SR ON TELE MONITOR HR-89, DENIES PAIN, NO SOB CALL LIGHT WITHIN REACH, SIDERAILSUPX2, WILL CONTINUE TO MONITOR
[2022-01-29 20:00] VITALS: BP 125/54
[2022-01-29] MEDS: APIXABAN 5 MG TABLET PO SCH (20:11)
[2022-01-29] MEDS: MUPIROCIN OINT 2% 22 GM TUBE NS SCH (20:16)
[2022-01-29] MEDS: LOSARTAN POTASSIUM 50 MG TABLET PO SCH (22:02)
[2022-01-29] MEDS: DULOXETINE HCL 30 MG CAPSULE.DR PO SCH (22:02)
[2022-01-30] VITALS: BP 125/64
[2022-01-30] MEDS: ALBUTEROL FS 2.5 MG/0.5 ML VIAL.NEB NEB SCH ×4 (01:38→19:45)
[2022-01-30] MEDS: IPRATROPIUM NEB FS 0.5 MG/2.5 ML AMPUL.NEB NEB SCH ×4 (01:38→19:45)
[2022-01-30 04:00] VITALS: BP 128/63
[2022-01-30] MEDS: IV NS 0.9% 1,000 ML IV PRN (04:26)
[2022-01-30 06:46] LABS: BASOPHILS % (AUTO) 0.1 % (0.0-2.0); EOSINOPHILS % (AUTO) 0.7 % (0.0-6.0); HEMATOCRIT 27 % (33-45); HEMOGLOBIN 9.4 g/dL (11.5-14.8); LYMPHOCYTES # (AUTO) 1.7 K/uL (0.8-4.8); LYMPHOCYTES % (AUTO) 13.3 % (20.0-44.0); MEAN CORPUSCULAR HGB CONC 35 g/dl (31.0-36.0); MEAN CORPUSCULAR VOLUME 103 fL (82-100); MONOCYTES # (AUTO) 1.5 K/uL (0.1-1.30); MONOCYTES % (AUTO) 11.9 % (2.0-12.0); NEUTROPHILS # (AUTO) 9.2 K/uL (1.8-8.9); PLATELET COUNT (AUTO) 432 K/uL (150-450); RED BLOOD CELL COUNT(AUTO) 2.62 MIL/uL (4.0-5.2); WHITE BLOOD COUNT (AUTO) 12.4 K/uL (4.3-11.0)
--- NOTE | 2022-01-30 06:52 | NUR ---
RN NOTES AWAKE. NOT IN DISTRESS, DENIES PAIN, MORNING CARE RENDERED, SIDERAILSUPX2, PT. NEEDS ATTENDED
[2022-01-30 07:17] LABS: ALANINE AMINOTRANSFERASE 15 U/L (12-78); ALKALINE PHOSPHATASE 84 U/L (46-116); ASPARTATE AMINOTRANSFERASE 15 U/L (15-37); BILIRUBIN,TOTAL 0.6 mg/dL (0.2-1.0); CALCIUM, SERUM 7.5 mg/dL (8.5-10.1); CARBON DIOXIDE 24 mmol/L (21-32); CHLORIDE 113 mmol/L (98-107); CREATININE 0.5 mg/dL (0.6-1.3); GLUCOSE 102 mg/dL (74-106); SODIUM SERUM 143 mmol/L (136-145); TOTAL PROTEIN, SERUM 5.7 g/dL (6.4-8.2); UREA NITROGEN, BLOOD 11 mg/dL (7-18)
--- NOTE | 2022-01-30 07:56 | NUR ---
RN OPENING NOTE PATENT IN BED RESTING UPON ASSESSMENT. NO ACUTE DISTRESS OBSERVED. RESPIRATORY EVEN AND UNLABORED ON ROOM AIR AT 3Ls TOLERATING WELL WITH 02SAT OF 99%. SKIN IS WARM TO TOUCH INTACT IV SITE R HAND 22G RUNNING NS @ 90ML/HR.. ELEVATE HOB FOR ASPIRATION PRECAUTION AND ENSURE AIRWAY. ALL SAFETY MEASURES NOTED AND ACCOUNTED FOR. BED IN LOWEST POSITION AND WHEELS LOCKED IN PLACE. CALL LIGHT WITHIN REACH. WILL CONTINUE TO MONITOR.
[2022-01-30 08:00] VITALS: BP 146/74
[2022-01-30] MEDS: ACETAMINOPHEN 325 MG TABLET PO PRN (08:30)
[2022-01-30] MEDS: ACIDOPHILUS/BULGARICUS 1 EACH TAB.CHEW PO SCH (09:01)
[2022-01-30] MEDS: GABAPENTIN 100 MG CAPSULE PO SCH ×2 (09:02→21:39)
[2022-01-30] MEDS: POLYETHYLENE GLYCOL 3350 17 GM POWD.PACK PO SCH (09:02)
[2022-01-30] MEDS: BACLOFEN (10 MG) 10 MG TABLET PO SCH ×2 (09:04→17:00)
[2022-01-30] MEDS: SENNOSIDES 8.6 MG TABLET PO SCH (09:05)
[2022-01-30] MEDS: FERROUS SULFATE (325 MG) 325 MG/TAB TABLET PO SCH (09:05)
[2022-01-30] MEDS: LIDOCAINE 5% (PATCH) 1 EA PATCH TP SCH (09:05)
[2022-01-30] MEDS: VANCOMYCIN 0.75 GM in IV D5W 250 ML IV SCH (09:06)
[2022-01-30] MEDS: APIXABAN 5 MG TABLET PO SCH ×2 (09:08→16:59)
[2022-01-30] MEDS: PANTOPRAZOLE 40 MG TABLET.DR PO SCH (09:12)
[2022-01-30] MEDS: VERAPAMIL SR 120 MG TABLET.SA PO SCH ×2 (09:17→21:54)
[2022-01-30] MEDS: MUPIROCIN OINT 2% 22 GM TUBE NS SCH ×2 (09:18→21:56)
[2022-01-30] MEDS ORDERED: POTASSIUM CHLORIDE 20 MEQ TAB.PRT.SR PO ONE (09:30)
[2022-01-30] MEDS: FUROSEMIDE 40 MG/4 ML VIAL IV SCH ×2 (11:20→16:59)
[2022-01-30 12:00] VITALS: BP 154/91
--- NOTE | 2022-01-30 12:16 | NUR ---
RN NOTE PATIENT HR INCREASED FROM 90'S TO 120-150 AFTER BREATHING TREATMENT. STAT EKG ORDERED PER MD MARK.
--- NOTE | 2022-01-30 12:49 | NUR ---
RT RESP TX HELD PER HIGH PULSE. PATIENT HAS NO COMPLAINTS OF RESP DISTRESS.
[2022-01-30] MEDS ORDERED: METOPROLOL TARTRATE INJ 5 MG/5 ML AMPUL IVP PRN (13:00)
--- NOTE | 2022-01-30 13:05 | NUR ---
RN NOTE MD MORALES ONE TIME ORDER FOR 5MG/ML METOPROLOL IVP FOR UNCONTROLLED AFIB WITH CURRENT RATE OF 146 VERIFIED BY EKG. WILL ADM MEDS ORDERED AND CONTINUE TO MONITOR.
[2022-01-30] MEDS: CEFEPIME 2 GM in IV D5W 100 ML IV SCH (14:56)
[2022-01-30 16:00] VITALS: BP 99/50
--- NOTE | 2022-01-30 18:38 | NUR ---
RN CLOSING NOTE PATIENT REMAINED STABLE THROUGHOUT SHIFT. PATENT IN BED RESTING. NO ACUTE DISTRESS OBSERVED. RESPIRATORY EVEN AND UNLABORED ON ROOM AIR AT 3Ls TOLERATING WELL WITH 02SAT OF 92%. SKIN IS WARM TO TOUCH INTACT IV SITE R HAND 22G RUNNING NS @ 90ML/HR.. ELEVATE HOB FOR ASPIRATION PRECAUTION AND ENSURE AIRWAY. ALL NEED MET AND MEDS ADM PER MD ORDER. ALL SAFETY MEASURES NOTED AND ACCOUNTED FOR. BED IN LOWEST POSITION AND WHEELS LOCKED IN PLACE. CALL LIGHT WITHIN REACH. WILL ENDORSE TO WIRELESS TEAM MEMBER RN.
[2022-01-30 18:53] LABS: EOSINOPHILS % (MANUAL) 1 % (0-4); LYMPHOCYTES % (MANUAL) 13 % (16-48); MONOCYTES % (MANUAL) 11 % (0-11.0); NEUTROPHILS % (MANUAL) 75 (42-76)
--- NOTE | 2022-01-30 19:33 | NUR ---
MVA STILL OPERATOR OPENING NOTE PATIENT RECEIVED ASLEEP IN BED. A/OX2. NO S/S OF DISTRESS. BREATHING W/O DIFFICULTY ON 3L NC. TELE MONITOR REVEALS AFIB 88. RH #22 SL INTACT AND PATENT. SAFETY MEASURES IN PLACE: BED AT LOWEST POSITION, RAILS UP X3, CALL QUIGLEY WITHIN REACH. WILL CONTINUE TO MONITOR PATIENT.
[2022-01-30 20:00] VITALS: BP 121/71
[2022-01-30] MEDS: LOSARTAN POTASSIUM 50 MG TABLET PO SCH (21:39)
[2022-01-30] MEDS: DULOXETINE HCL 30 MG CAPSULE.DR PO SCH (21:40)
--- NOTE | 2022-01-30 21:50 | NUR ---
RN NOTE PATIENT'S 2100 VERAPAMIL WAS DISPENSED FROM FROM THE [employer] VERAPAMIL EXTENDED-RELEASE 120MG W/ TWO TABLETS BEING DISPENSED TO EQUAL 240. I WAS ABLE TO SCAN ALL THE PATIENT'S MEDICATIONS EXCEPT THE VERAPAMIL. [facility] HAD THE eMAR REFLECT VERAPAMIL SR 120MG W/ TWO TABLETS (EQUALLING 240). I TRIED TWICE SCANNING THE MED AND ASKED ANOTHER NURSE TO CHECK WHAT I WAS DOING IN ORDER TO MEDICATION RIGHTS. UNABLE TO RESOLVE THE ISSUE I CONTACTED [facility] ([phone]) AND SPOKE W/ JUAN DIEGO, THE PHARMACIST. SHE VERIFIED THAT EXTENDED-RELEASE IS THE SAME SR (SUSTAINED-RELEASE). I READ AND RE-READ BACK ALL THE INFORMATION ON LABELLED ON THE PACKAGING JUST TO VERIFY MED W/ HER. SHE STATED I WAS SAFE TO DISPENSE THE MED, SO I DID. BECAUSE I WAS UNABLE TO SCAN THE MEDS I CLICKED ADMINISTERED SO IT WOULD STILL BE RECORDED IN THE eMAR RECORD. PATIENT IS STABLE; WILL CONTINUE TO MONITOR.
[2022-01-31] VITALS: BP 98/54
[2022-01-31] MEDS: IPRATROPIUM NEB FS 0.5 MG/2.5 ML AMPUL.NEB NEB SCH ×4 (01:09→20:49)
[2022-01-31] MEDS: ALBUTEROL FS 2.5 MG/0.5 ML VIAL.NEB NEB SCH ×4 (01:09→20:50)
[2022-01-31] MEDS: VANCOMYCIN 0.75 GM in IV D5W 250 ML IV SCH ×2 (02:05→22:16)
[2022-01-31 04:00] VITALS: BP 104/54
--- NOTE | 2022-01-31 06:32 | NUR ---
SHOCK ABSORPTION FLOOR LAYER CLOSING NOTE PATIENT IS ASLEEP IN BED. A/OX3. NO S/S OF DISTRESS; BREATHING W/O DIFFICULTY ON 3L NC. RH#22 SL INTACT AND PATENT. TELE MONITOR REVEALS AFIB 90 CONTROLLED. SAFETY MEASURES IN PLACE: BED AT LOWEST POSITION, RAILS UP X3, CALL QUIGLEY WITHIN REACH. WILL ENDORSE TO NEXT SHIFT FOR BRIGIDO.
[2022-01-31 06:48] LABS: BASOPHILS % (AUTO) 0.3 % (0.0-2.0); EOSINOPHILS % (AUTO) 1.4 % (0.0-6.0); HEMATOCRIT 27 % (33-45); HEMOGLOBIN 9.5 g/dL (11.5-14.8); LYMPHOCYTES # (AUTO) 1.9 K/uL (0.8-4.8); LYMPHOCYTES % (AUTO) 16.5 % (20.0-44.0); MEAN CORPUSCULAR HGB CONC 35 g/dl (31.0-36.0); MEAN CORPUSCULAR VOLUME 99 fL (82-100); MONOCYTES # (AUTO) 1.5 K/uL (0.1-1.30); MONOCYTES % (AUTO) 12.6 % (2.0-12.0); NEUTROPHILS # (AUTO) 8.1 K/uL (1.8-8.9); NEUTROPHILS % (AUTO) 69.2 % (43.0-81.0); PLATELET COUNT (AUTO) 480 K/uL (150-450); RED BLOOD CELL COUNT(AUTO) 2.75 MIL/uL (4.0-5.2); WHITE BLOOD COUNT (AUTO) 11.6 K/uL (4.3-11.0)
--- NOTE | 2022-01-31 07:50 | NUR ---
RN Opening notes 0700 Patient endorsed by outgoing nurse for continuity of care. Received patient in bed locked at lowest position with upper side raised and call light within reach. Patient A&OX3 Patient is verbalized and speak clearly, no sign of distress or SOB noted; breathing is even and unlabored. patient has tacky rhythm. Patient has righ hand 22 tejal and is patent. Patient is non-ambulatory, incontinent GI, bowel sounds present in all quadrant, soft and non distended. Incontinent . Will continue to monitor changes in patient condition and patient safety.
[2022-01-31 08:00] VITALS: BP 106/65
[2022-01-31] MEDS: PANTOPRAZOLE 40 MG TABLET.DR PO SCH (08:00)
[2022-01-31 08:41] LABS: ALANINE AMINOTRANSFERASE 13 U/L (12-78); ALKALINE PHOSPHATASE 82 U/L (46-116); ASPARTATE AMINOTRANSFERASE 15 U/L (15-37); BILIRUBIN,TOTAL 0.5 mg/dL (0.2-1.0); TOTAL PROTEIN, SERUM 5.8 g/dL (6.4-8.2)
[2022-01-31] MEDS: VERAPAMIL SR 120 MG TABLET.SA PO SCH ×2 (09:00→21:31)
[2022-01-31] MEDS: MUPIROCIN OINT 2% 22 GM TUBE NS SCH ×2 (09:00→21:39)
[2022-01-31] MEDS: SENNOSIDES 8.6 MG TABLET PO SCH (09:00)
[2022-01-31 10:06] LABS: CALCIUM, SERUM 8.8 mg/dL (8.5-10.1); CARBON DIOXIDE 26 mmol/L (21-32); CHLORIDE 108 mmol/L (98-107); CREATININE 0.5 mg/dL (0.6-1.3); GLUCOSE 83 mg/dL (74-106); SODIUM SERUM 144 mmol/L (136-145); UREA NITROGEN, BLOOD 10 mg/dL (7-18)
[2022-01-31 10:19] LABS: POTASSIUM 2.6 mmol/L (3.5-5.1)
[2022-01-31] MEDS: GABAPENTIN 100 MG CAPSULE PO SCH ×2 (10:30→21:31)
[2022-01-31] MEDS: ACIDOPHILUS/BULGARICUS 1 EACH TAB.CHEW PO SCH (10:30)
[2022-01-31] MEDS: BACLOFEN (10 MG) 10 MG TABLET PO SCH ×2 (10:30→17:41)
[2022-01-31] MEDS: FERROUS SULFATE (325 MG) 325 MG/TAB TABLET PO SCH (10:30)
[2022-01-31] MEDS: APIXABAN 5 MG TABLET PO SCH ×2 (10:35→17:41)
[2022-01-31] MEDS: POLYETHYLENE GLYCOL 3350 17 GM POWD.PACK PO SCH (10:36)
[2022-01-31] MEDS: LIDOCAINE 5% (PATCH) 1 EA PATCH TP SCH (10:36)
[2022-01-31] MEDS: POTASSIUM CHLORIDE 20 MEQ TAB.PRT.SR PO SCH ×2 (10:38→17:40)
[2022-01-31 12:00] VITALS: BP 115/60
[2022-01-31] MEDS: CEFEPIME 2 GM in IV D5W 100 ML IV SCH (15:52)
[2022-01-31 16:00] VITALS: BP 103/58
--- NOTE | 2022-01-31 19:01 | NUR ---
QUALITY ASSURANCE ANALYST CLOSING NOTE PATIENT IS ASLEEP IN BED. A/OX3. NO S/S OF DISTRESS; BREATHING W/O DIFFICULTY ON 3L NC. RH#22 SL INTACT AND PATENT. SAFETY MEASURES IN PLACE: BED AT LOWEST POSITION, RAILS UP X3, CALL QUIGLEY WITHIN REACH. WILL ENDORSE TO NEXT SHIFT FOR BRIGIDO.
--- NOTE | 2022-01-31 19:51 | NUR ---
RN NOTE RECEIVED PT IN BED, AO X3. ON 3L NC VIA NC. DENIES ANY SOB OF PAIN. NOT IN ANY DISTRESS. SR ON TELE MONITOR. IV INTACT. ALL SAFETY MEASURES IN PLACE PER PROTOCOL. CALL LIGHT WITHIN REACH. WILL CONTINUE TO MONITOR.
[2022-01-31 20:00] VITALS: BP 129/78
[2022-01-31] MEDS: LOSARTAN POTASSIUM 50 MG TABLET PO SCH (21:30)
[2022-01-31] MEDS: DULOXETINE HCL 30 MG CAPSULE.DR PO SCH (21:30)
[2022-02-01] VITALS: BP 95/76
[2022-02-01] MEDS: IPRATROPIUM NEB FS 0.5 MG/2.5 ML AMPUL.NEB NEB SCH ×4 (02:13→19:56)
[2022-02-01] MEDS: ALBUTEROL FS 2.5 MG/0.5 ML VIAL.NEB NEB SCH ×4 (02:13→19:56)
[2022-02-01 04:00] VITALS: BP 110/57
--- NOTE | 2022-02-01 04:24 | NUR ---
RN NOTE PT SATING 87% ON 3L. DENIES ANY SOB. NO CHANGES IN LOC NOTED. PUT ON 10L SIMPLE MASK SATING 88% ONLY. O2 CHANGED TO NONREBREATHER 15L, O2 SAT AT 97% NOW. WILL CONTINUE TO MONITOR.
--- NOTE | 2022-02-01 06:02 | NUR ---
RN NOTE O2 SWITCHED BACK TO NC AT 5L BY RT. SATING 98%. DEEP SUCTION DONE BY RT. WILL CONTINUE TO MONITOR.
[2022-02-01] MEDS: ACETAMINOPHEN 325 MG TABLET PO PRN (06:43)
--- NOTE | 2022-02-01 06:48 | NUR ---
RN NOTE PT TOLERATING O2 AT 5L SATING 96%. DENIES ANY SOB. NO CHANGES IN LOC NOTED. PT COMPLAINED OF BACK PAIN. REPOSITIONED, TYLENOL GIVEN. PT REMAIN SR IN TELE MONITOR WITH HR IN 80S. PT ABLE TO MAKE NEEDS KNOWN. ASSISTED IN TURNING, NEEDS ATTENDED. NEW IV LINE ON RFA PATENT AND INTACT. NO S/SX OF INFECTION. KEPT COMFORTABLE. WILL ENDORSE TO NEXT SHIFT NURSE FOR BRIGIDO.
--- NOTE | 2022-02-01 07:26 | NUR ---
RN opening Notes 0700 Patient endorsed by outgoing nurse for continuity of care. Received patient in bed locked at lowest position with upper side rails raised and call light within reach. Patient A&OX3, Patient is verbalized and speak clearly. No sign of distress or SOB noted, breathing is even and non labored. Regular heart rhythm today reported.. Patient has no swollen extremities, Right forearm 20 Michael IV. Patient is non-ambulatory, incontinent, Bowel sounds present in all quadrants, soft and non distended. Incontinent , Encourage call light use and reinforced unit policies. POC reviewed with Patient, questions and concerns addressed. Will continue to monitor changes in condition and Patient safety.
[2022-02-01 07:51] LABS: BASOPHILS % (AUTO) 0.3 % (0.0-2.0); EOSINOPHILS % (AUTO) 2.6 % (0.0-6.0); HEMATOCRIT 27 % (33-45); HEMOGLOBIN 9.3 g/dL (11.5-14.8); LYMPHOCYTES # (AUTO) 1.8 K/uL (0.8-4.8); LYMPHOCYTES % (AUTO) 16.8 % (20.0-44.0); MEAN CORPUSCULAR HGB CONC 34 g/dl (31.0-36.0); MEAN CORPUSCULAR VOLUME 100 fL (82-100); MONOCYTES # (AUTO) 1.4 K/uL (0.1-1.30); NEUTROPHILS # (AUTO) 7.3 K/uL (1.8-8.9); NEUTROPHILS % (AUTO) 67.3 % (43.0-81.0); PLATELET COUNT (AUTO) 513 K/uL (150-450); RED BLOOD CELL COUNT(AUTO) 2.71 MIL/uL (4.0-5.2); WHITE BLOOD COUNT (AUTO) 10.8 K/uL (4.3-11.0)
[2022-02-01] MEDS: PANTOPRAZOLE 40 MG TABLET.DR PO SCH (07:51)
[2022-02-01 08:00] VITALS: BP 102/59
[2022-02-01] MEDS: GABAPENTIN 100 MG CAPSULE PO SCH ×2 (08:25→21:50)
[2022-02-01] MEDS: SENNOSIDES 8.6 MG TABLET PO SCH (08:26)
[2022-02-01] MEDS: POLYETHYLENE GLYCOL 3350 17 GM POWD.PACK PO SCH (08:26)
[2022-02-01] MEDS: FERROUS SULFATE (325 MG) 325 MG/TAB TABLET PO SCH (08:26)
[2022-02-01] MEDS: BACLOFEN (10 MG) 10 MG TABLET PO SCH ×2 (08:27→17:54)
[2022-02-01] MEDS: LOSARTAN POTASSIUM 25 MG TABLET PO SCH (08:29)
[2022-02-01] MEDS: APIXABAN 5 MG TABLET PO SCH ×2 (08:30→17:54)
[2022-02-01] MEDS: LIDOCAINE 5% (PATCH) 1 EA PATCH TP SCH (08:32)
[2022-02-01] MEDS: MUPIROCIN OINT 2% 22 GM TUBE NS SCH ×2 (08:35→21:58)
[2022-02-01] MEDS: POTASSIUM CHLORIDE 20 MEQ POWDER PACKET PO SCH ×2 (08:55→17:53)
[2022-02-01] MEDS: ACIDOPHILUS/BULGARICUS 1 EACH TAB.CHEW PO SCH (09:13)
[2022-02-01] MEDS: VERAPAMIL HCL 80 MG TABLET PO SCH ×2 (10:42→21:50)
[2022-02-01 11:18] LABS: CALCIUM, SERUM 8.1 mg/dL (8.5-10.1); CARBON DIOXIDE 25 mmol/L (21-32); CHLORIDE 109 mmol/L (98-107); CREATININE 0.6 mg/dL (0.6-1.3); GLUCOSE 89 mg/dL (74-106); POTASSIUM 3.6 mmol/L (3.5-5.1); SODIUM SERUM 144 mmol/L (136-145); UREA NITROGEN, BLOOD 12 mg/dL (7-18)
[2022-02-01 11:31] LABS: ALANINE AMINOTRANSFERASE 13 U/L (12-78); ALBUMIN 1.9 g/dL (3.4-5.0); ASPARTATE AMINOTRANSFERASE 13 U/L (15-37); BILIRUBIN,TOTAL 0.4 mg/dL (0.2-1.0); TOTAL PROTEIN, SERUM 5.6 g/dL (6.4-8.2)
[2022-02-01 12:00] VITALS: BP 117/68
[2022-02-01] MEDS: CEFEPIME 2 GM in IV D5W 100 ML IV SCH (15:03)
[2022-02-01] MEDS: VANCOMYCIN 0.75 GM in IV D5W 250 ML IV SCH (15:05)
[2022-02-01 16:00] VITALS: BP 110/63
--- NOTE | 2022-02-01 18:29 | NUR ---
RN closing note 0700 Patient endorsed by outgoing nurse for continuity of care. Received patient in bed locked at lowest position with upper side rails raised and call light within reach. Patient A&OX3, Patient is verbalized and speak clearly. No sign of distress or SOB noted, breathing is even and non labored. Regular heart rhythm today reported.. Patient has no swollen extremities, Right forearm 20 Michael IV. Patient is non-ambulatory, incontinent, Bowel sounds present in all quadrants, soft and non distended. Incontinent , Encourage call light use and reinforced unit policies. POC reviewed with Patient, questions and concerns addressed. Will continue to monitor changes in condition and Patient safety. Patient is resting comfortably and is in no acute distress. Call light and tray table with personal belonging within reach. Patient was maintained throughout shift and vitals remained in patient's baseline. Interventions was completed as needed. All of the patient's needs have been met. Assistance was provided as needed. Pain medications were administered as needed per MD orders. Will endorse to welder apprentice arc nurse.
--- NOTE | 2022-02-01 19:32 | NUR ---
RN NOTES RECEIVED PT FOR CONTINUITY OF CARE. PATIENT A/OX3-4 IN NO S/SX OF ACUTE DISTRESS AT THIS TIME; CURRENTLY ON 3L OF 02 VIA NC; WITH 02 SAT >95% AT THIS TIME. WILL ENSURE SAFETY MEASURES WITHIN THE SHIFT. PATIENT BED ALARM IS ON. HEAD OF BED ELEVATED. BED IS LOCKED, IN LOWEST POSITION AND SIDE RAILS UP. CALL LIGHT WITHIN REACH OF THE PATIENT. APPLICABLE ISOLATION PRECAUTIONS IN PLACE. WILL CONTINUE TO MONITOR AND REASSESS FOR ANY CHANGES AND WILL CARRY OUT ANY ONGOING AND ACTIVE MD ORDER.
[2022-02-01 20:00] VITALS: BP 106/63
[2022-02-01] MEDS: DULOXETINE HCL 30 MG CAPSULE.DR PO SCH (21:50)
[2022-02-02] VITALS: BP 95/58
[2022-02-02] MEDS: ACETAMINOPHEN 325 MG TABLET PO PRN ×2 (00:03→21:57)
[2022-02-02] MEDS: ALBUTEROL FS 2.5 MG/0.5 ML VIAL.NEB NEB SCH ×4 (01:51→19:42)
[2022-02-02] MEDS: IPRATROPIUM NEB FS 0.5 MG/2.5 ML AMPUL.NEB NEB SCH ×4 (01:51→19:42)
[2022-02-02] MEDS: VANCOMYCIN 0.75 GM in IV D5W 250 ML IV SCH ×2 (02:46→15:06)
[2022-02-02 04:00] VITALS: BP 98/56
--- NOTE | 2022-02-02 04:00 | NUR ---
RN NOTES NO NOTED CHANGES IN PATIENT CONDITION AT THIS TIME; NO SIGNS OF ACUTE RESPIRATORY DISTRESS; 02 SAT REMAINS >95%. AM PATIENT CARE RENDERED.WILL CONTINUE TO MONITOR AND REASSESS FOR ANY CHANGES THROUGHOUT THE SHIFT.
--- NOTE | 2022-02-02 06:39 | NUR ---
RN CLOSING NOTE: PATIENT REMAINS IN ROOM IN NO SIGNS OF RESPIRATORY DISTRESS, PATIENT STILL ON 3L OF 02 VIA NC; TOLERATING WELL SATURATING @ >95% SP02. SAFETY MEASURES IMPLEMENTED, BED IN LOWEST POSITION, LOCKED, SIDE RAILS UP, CALL LIGHT WITHIN REACH. ALL NEEDS AND ORDERS ADDRESSED DURING THE SHIFT. IV ACCESS MAINTAINED INTACT, SECURED AND FLUSHING WELL. ALL DUE MEDS GIVEN ORDERED & SCHEDULED ; PATIENT TOLERATED WELL. PATIENT KEPT CLEAN AND COMFORTABLE WITHIN THE SHIFT. PATIENT ENDORSED TO INCOMING SHIFT RN WITH STABLE VITAL SIGN AND FOR CONTINUITY OF CARE.
[2022-02-02 06:58] LABS: BASOPHILS % (AUTO) 0.2 % (0.0-2.0); EOSINOPHILS % (AUTO) 6.1 % (0.0-6.0); HEMATOCRIT 27 % (33-45); HEMOGLOBIN 8.9 g/dL (11.5-14.8); LYMPHOCYTES # (AUTO) 2.5 K/uL (0.8-4.8); LYMPHOCYTES % (AUTO) 30.8 % (20.0-44.0); MEAN CORPUSCULAR HGB CONC 34 g/dl (31.0-36.0); MEAN CORPUSCULAR VOLUME 98 fL (82-100); MONOCYTES # (AUTO) 1.2 K/uL (0.1-1.30); MONOCYTES % (AUTO) 15.1 % (2.0-12.0); NEUTROPHILS # (AUTO) 3.8 K/uL (1.8-8.9); NEUTROPHILS % (AUTO) 47.8 % (43.0-81.0); PLATELET COUNT (AUTO) 540 K/uL (150-450); RED BLOOD CELL COUNT(AUTO) 2.71 MIL/uL (4.0-5.2)
--- NOTE | 2022-02-02 07:23 | NUR ---
RN OPENING NOTES RECEIVED PT IN BED AWAKE, A/O X1-2. NO S/S OF DISTRESS, PT HAS PULLED IV ACCESS FROM RFA. CURRENTLY NO IV ACCESS. WILL ORDER SOFT RESTRAINTS FOR PT SAFETY. PT IS ON 2L VIA NC AND SATING AT 95%. ALL SAFETY MEASURES IN PLACE, BED IN LOWEST LOCKED POSITION, CALL LIGHT WITHIN REACH. WILL CONTINUE TO MONITOR THROUGHOUT SHIFT.
[2022-02-02] MEDS: PANTOPRAZOLE 40 MG TABLET.DR PO SCH (07:37)
[2022-02-02 08:00] VITALS: BP 128/59
[2022-02-02 08:00] LABS: ALBUMIN 1.9 g/dL (3.4-5.0); BILIRUBIN,TOTAL 0.3 mg/dL (0.2-1.0); CREATININE 0.6 mg/dL (0.6-1.3); POTASSIUM 4.1 mmol/L (3.5-5.1); TOTAL PROTEIN, SERUM 5.5 g/dL (6.4-8.2)
--- NOTE | 2022-02-02 08:21 | NUR ---
RN NOTES MONOMORPHIC VTACH FOR 8 SEC NOTED. 150 BPM.
[2022-02-02] MEDS: POLYETHYLENE GLYCOL 3350 17 GM POWD.PACK PO SCH (08:26)
[2022-02-02] MEDS: POTASSIUM CHLORIDE 20 MEQ POWDER PACKET PO SCH ×2 (08:26→16:02)
[2022-02-02] MEDS: BACLOFEN (10 MG) 10 MG TABLET PO SCH ×2 (08:26→17:26)
[2022-02-02] MEDS: FERROUS SULFATE (325 MG) 325 MG/TAB TABLET PO SCH (08:26)
[2022-02-02] MEDS: GABAPENTIN 100 MG CAPSULE PO SCH ×2 (08:26→21:57)
[2022-02-02] MEDS: SENNOSIDES 8.6 MG TABLET PO SCH (08:26)
[2022-02-02] MEDS: LOSARTAN POTASSIUM 25 MG TABLET PO SCH (08:26)
[2022-02-02] MEDS: ACIDOPHILUS/BULGARICUS 1 EACH TAB.CHEW PO SCH (08:26)
[2022-02-02] MEDS: LIDOCAINE 5% (PATCH) 1 EA PATCH TP SCH (08:27)
[2022-02-02 08:28] LABS: EOSINOPHILS % (MANUAL) 6 % (0-4); LYMPHOCYTES % (MANUAL) 34 % (16-48); MONOCYTES % (MANUAL) 8 % (0-11.0); NEUTROPHILS % (MANUAL) 52 (42-76)
[2022-02-02] MEDS: APIXABAN 5 MG TABLET PO SCH ×2 (08:58→16:14)
[2022-02-02] MEDS: VERAPAMIL HCL 80 MG TABLET PO SCH ×2 (09:35→21:57)
[2022-02-02] MEDS: MUPIROCIN OINT 2% 22 GM TUBE NS SCH ×2 (09:35→21:49)
[2022-02-02] MEDS: ALBUMIN 25% 25 GM in PREMIX 1 EA IV SCH ×2 (11:02→22:51)
--- NOTE | 2022-02-02 11:12 | NUR ---
RN NOTES UPPER ARM MIDLINE COMPLETE AND FLUSHING WELL. ASSESSED THAT LINE PULL WAS ACCIDENTAL, WILL NOT ORDER RESTRAINTS.
[2022-02-02 12:00] VITALS: BP 97/59
[2022-02-02] MEDS: CEFEPIME 2 GM in IV D5W 100 ML IV SCH (14:25)
[2022-02-02 16:00] VITALS: BP 104/61
--- NOTE | 2022-02-02 18:31 | NUR ---
RN CLOSING NOTE PATIENT IS RESTING IN ROOM WITH NO S/S OF RESPIRATORY DISTRESS, PATIENT STILL ON 3L OF 02 VIA NC; TOLERATING WELL SATURATING @ >95% SP02. SAFETY MEASURES IMPLEMENTED, BED IN LOWEST POSITION, LOCKED, SIDE RAILS UP, CALL LIGHT WITHIN REACH. ALL NEEDS AND ORDERS ADDRESSED DURING THE SHIFT. NEW IV ACCESS AT GIOVANNY MIDLINE, MAINTAINED INTACT, SECURED AND FLUSHING WELL. ALL DUE MEDS GIVEN ORDERED & SCHEDULED ; PATIENT TOLERATED WELL. PATIENT KEPT CLEAN AND COMFORTABLE WITHIN THE SHIFT. WILL ENDORSE TO EQUALIZING SAW OPERATOR NURSE FOR BRIGIDO.
--- NOTE | 2022-02-02 19:25 | NUR ---
RN NOTE PT RECEIVED IN BED,. PT IS ON 3L OF O2 VIA NC SHOWING NO S/S OF RESP DISTRESS. BREATHING EVEN AND UNLABORED. PT IS A/OX3-4, ABLE TO VERBALIZE NEEDS. ON VINEYARD SUPERVISOR SHOWING NSR-ST. IV ACCESS NOTED ON RIGHT UPPER ARM ML. LINE FLUSHED, PATENT, AND INTACT WITH NO SIGNS OF INFILTRATION. ALL SAFETY MEASURES IMPLEMENTED. HOB ELEVATED. CALL LIGHT WITHIN REACH. BED LOCKED AND IN LOWEST POSITION. SIDE RAILS UP. WILL CONTINUE TO MONITOR AND ASSESS FOR ANY CHANGES DURING SHIFT.
[2022-02-02 20:00] VITALS: BP 100/49
[2022-02-02] MEDS: DULOXETINE HCL 30 MG CAPSULE.DR PO SCH (21:57)
[2022-02-03] VITALS: BP 94/57
[2022-02-03] MEDS: IPRATROPIUM NEB FS 0.5 MG/2.5 ML AMPUL.NEB NEB SCH ×3 (01:54→13:33)
[2022-02-03] MEDS: ALBUTEROL FS 2.5 MG/0.5 ML VIAL.NEB NEB SCH ×3 (01:54→13:33)
[2022-02-03] MEDS: VANCOMYCIN 0.75 GM in IV D5W 250 ML IV SCH (03:00)
--- NOTE | 2022-02-03 03:19 | NUR ---
RN NOTE HELD 0300 VANCOMYCIN DOSE DUE TO VANCO TROUGH OF 25.
[2022-02-03 04:00] VITALS: BP 110/76
[2022-02-03 06:23] LABS: BASOPHILS % (AUTO) 0.4 % (0.0-2.0); EOSINOPHILS % (AUTO) 6.1 % (0.0-6.0); HEMATOCRIT 25 % (33-45); LYMPHOCYTES # (AUTO) 2.2 K/uL (0.8-4.8); LYMPHOCYTES % (AUTO) 31.9 % (20.0-44.0); MEAN CORPUSCULAR HGB CONC 36 g/dl (31.0-36.0); MEAN CORPUSCULAR VOLUME 102 fL (82-100); MONOCYTES # (AUTO) 1.1 K/uL (0.1-1.30); MONOCYTES % (AUTO) 15.5 % (2.0-12.0); NEUTROPHILS # (AUTO) 3.2 K/uL (1.8-8.9); NEUTROPHILS % (AUTO) 46.1 % (43.0-81.0); PLATELET COUNT (AUTO) 601 K/uL (150-450); RED BLOOD CELL COUNT(AUTO) 2.48 MIL/uL (4.0-5.2); WHITE BLOOD COUNT (AUTO) 6.9 K/uL (4.3-11.0)
--- NOTE | 2022-02-03 06:33 | NUR ---
RN NOTE NO CHANGES IN PT CONDITION DURING SHIFT. PT IS ON 3L OF O2 VIA NC SHOWING NO S/S OF RESP DISTRESS. BREATHING EVEN AND UNLABORED. PT IS A/OX3-4, ABLE TO VERBALIZE NEEDS. ON INSURANCE PROCESSING CLERK SHOWING NSR-ST. IV ACCESS NOTED ON RIGHT UPPER ARM ML. LINE FLUSHED, PATENT, AND INTACT WITH NO SIGNS OF INFILTRATION. ALL SAFETY MEASURES IMPLEMENTED. PT KEPT CLEAN AND COMFORTABLE. ALL DUE MEDS GIVEN ORDERED. HOB ELEVATED. CALL LIGHT WITHIN REACH. BED LOCKED AND IN LOWEST POSITION. SIDE RAILS UP. WILL ENDORSE TO MORNING SHIFT RN FOR BRIGIDO.
[2022-02-03 07:23] LABS: CALCIUM, SERUM 8.2 mg/dL (8.5-10.1); CREATININE 0.6 mg/dL (0.6-1.3); POTASSIUM 3.8 mmol/L (3.5-5.1)
[2022-02-03 07:29] LABS: ALBUMIN 2.4 g/dL (3.4-5.0); BILIRUBIN,TOTAL 0.3 mg/dL (0.2-1.0); TOTAL PROTEIN, SERUM 5.6 g/dL (6.4-8.2)
[2022-02-03 08:00] VITALS: BP 142/77
--- NOTE | 2022-02-03 08:36 | NUR ---
RN Opening notes 0700 Patient endorsed by outgoing nurse for continuity of care. Received patient in bed locked at lowest position with upper side rails raised and call light within reach. Patient A&O X3. Patient is verbalized and speak clearly. No sign of distress or SOB noted, breathing is even and unlabored. Regular heart rhythm and sometimes tacky. Patient has right upper arm midline IV. Patient is non-ambulatory, incontinent GI, Bowel sounds present in all quadrants, soft and non distended. incontinent. Encourage call light use and reinforced unit policies. Patient questions and concerns addressed. Will continue to monitor changes and conditions, and patient safety.
[2022-02-03] MEDS: PANTOPRAZOLE 40 MG TABLET.DR PO SCH (08:50)
[2022-02-03] MEDS: ACIDOPHILUS/BULGARICUS 1 EACH TAB.CHEW PO SCH (08:50)
[2022-02-03] MEDS: SENNOSIDES 8.6 MG TABLET PO SCH (08:51)
[2022-02-03] MEDS: GABAPENTIN 100 MG CAPSULE PO SCH (08:51)
[2022-02-03] MEDS: FERROUS SULFATE (325 MG) 325 MG/TAB TABLET PO SCH (08:51)
[2022-02-03] MEDS: MUPIROCIN OINT 2% 22 GM TUBE NS SCH (08:53)
[2022-02-03] MEDS: POLYETHYLENE GLYCOL 3350 17 GM POWD.PACK PO SCH (08:53)
[2022-02-03] MEDS: BACLOFEN (10 MG) 10 MG TABLET PO SCH (08:53)
[2022-02-03] MEDS: LIDOCAINE 5% (PATCH) 1 EA PATCH TP SCH (08:53)
[2022-02-03] MEDS: LOSARTAN POTASSIUM 25 MG TABLET PO SCH (08:53)
[2022-02-03] MEDS: APIXABAN 5 MG TABLET PO SCH (08:54)
[2022-02-03] MEDS ORDERED: LOSA25TA27 PO (09:07)
[2022-02-03] MEDS ORDERED: APIX5TAB PO (09:07)
[2022-02-03] MEDS: VERAPAMIL HCL 80 MG TABLET PO SCH (10:08)
[2022-02-03 10:53] LABS: BAND % (MANUAL) 6 % (0.0-5.0); EOSINOPHILS % (MANUAL) 12 % (0-4); LYMPHOCYTES % (MANUAL) 36 % (16-48); METAMYELOCYTES % 1 % (0-0); MONOCYTES % (MANUAL) 8 % (0-11.0); MYELOCYTES % 1 % (0-0); NEUTROPHILS % (MANUAL) 36 (42-76)
[2022-02-03 12:00] VITALS: BP 118/69
--- NOTE | 2022-02-03 15:25 | NUR ---
DC NOTES PT DC'S TO [facility] IN STABLE CONDITION. DC INSTRUCTIONS GIVEN AND EXPLAINED TO PT; VERBALIZED UNDERSTANDING. ALL PAPERWORK SIGNED AND COMPLETED. ALL BELONGINGS SENT, GIOVANNY [facility]LINE STILL INTACT UPON REQUEST OF [facility]. NO COMPLICATIONS NOTED. REPORT CALLED TO [facility] AND REPORT GIVEN TO KATY CASTRO. PT LEFT UNIT IN STABLE CONDITION VIA GURNEY. PT ENDORSED TO AMBULANCE CREW ACCORDINGLY.
[2022-02-05] MEDS ORDERED: APIXABAN 5 MG TABLET PO SCH (17:00)
== END 2022-02-03 16:08 | DRG 871 ==
LOC: ER 13:30 → TRANSITION 18:24 → TELE-TD 22:07 → TELE1 01-28 09:34
PROVIDERS: ADMIT Nurse Practitioner Acute Care; ATTEND Internal Medicine
PROC: 05H533Z Insertion of Infusion Device into Right Subclavian Vein, Percutaneous Approach (ICD-10-PCS; principal; 2022-02-02)
PROC: B546ZZA Ultrasonography of Right Subclavian Vein, Guidance (ICD-10-PCS; 2022-02-02)
DX: A41.9 Sepsis, unspecified organism (principal); G93.41 Metabolic encephalopathy; N17.0 Acute kidney failure with tubular necrosis; J69.0 Pneumonitis due to inhalation of food and vomit; J96.01 Acute respiratory failure with hypoxia; E44.0 Moderate protein-calorie malnutrition; E87.2 Acidosis; J44.0 Chronic obstructive pulmonary disease with (acute) lower respiratory infection; R64 Cachexia; J90 Pleural effusion, not elsewhere classified; J98.11 Atelectasis; I82.512 Chronic embolism and thrombosis of left femoral vein; E03.9 Hypothyroidism, unspecified; E87.6 Hypokalemia; Z66 Do not resuscitate; Z86.16 Personal history of COVID-19; E86.0 Dehydration; F03.90 Unspecified dementia, unspecified severity, without behavioral disturbance, psychotic disturbance, mood disturbance, and anxiety; G35 Multiple sclerosis; E88.09 Other disorders of plasma-protein metabolism, not elsewhere classified; I10 Essential (primary) hypertension; I48.0 Paroxysmal atrial fibrillation; G89.4 Chronic pain syndrome; M48.00 Spinal stenosis, site unspecified; N31.9 Neuromuscular dysfunction of bladder, unspecified; R65.20 Severe sepsis without septic shock; Z68.20 Body mass index [BMI] 20.0-20.9, adult; Z22.322 Carrier or suspected carrier of Methicillin resistant Staphylococcus aureus
CPT/HCPCS: 31720; 36415; 36600; 70450-TC; 71045-TC; 80048-TC; 80053-TC; 80076-TC; 80202-TC; 83605-TC; 83735-TC; 83880; 84100-TC; 84484-TC; 85025-TC; 87040-TC; 87081-TC; 87086-TC; 92526; 92611-TC; 93307-TC; 93970-TC; 94799-TC; 97110-TC; 97112-TC; 97530-TC; A4216; C9803; G0378; J0692; J1170; J1650; J1940; J2543; J3370; J3475; J3480; J3490; J7030; J7040; J7060; P9047

== ENCOUNTER 2022-02-18 18:57 | Inpatient (IN) | payer MEDICARE, OTHER ==
[~2022-02-18] VITALS: Ht 152.4 cm; Wt 48.5 kg
[~2022-02-18 18:57] MED LIST: ACET-2605 PO; ACET-868 PO; APIX5TAB PO; BACL10TA PO; BENZ200C53 PO; BUPR2TAB3 SL; CICL6.6S5 TP; CRAN3875 PO; CRAN425C6 PO; DIPH25CA51 PO; DULO60CA64 PO; FERR325T23 PO; GABA-532 PO; GUAI400T93 PO; IPRA3AMP23 IH; LACT1CAP71 PO; LIDO30AD10 TP; LOSA100T31 PO; LOSA25TA27 PO; MELA1TAB47 PO; PANT40TA49 PO; POLY17PO4 PO; POTA20TA83 PO; SENN-261 PO; VERA240T14 PO
[2022-02-18] MEDS ORDERED: ACET-868 PO (19:14)
[2022-02-18] MEDS ORDERED: ZINC170P TP (19:14)
[2022-02-18] MEDS ORDERED: MAG30ORA PO (19:14)
[2022-02-18] MEDS ORDERED: CICL34.6 TP (19:14)
[2022-02-18] MEDS ORDERED: APIX5TAB PO (19:14)
[2022-02-18] MEDS ORDERED: MULT-447 PO (19:14)
[2022-02-18] MEDS ORDERED: ZINC50TA69 PO (19:14)
[2022-02-18] MEDS ORDERED: CALC1TAB30 PO (19:14)
[2022-02-18] MEDS ORDERED: ONDA4TAB11 PO (19:14)
[2022-02-18] MEDS ORDERED: ALBU2.5V38 IH (19:14)
[2022-02-18] MEDS ORDERED: AMIN30LI2 PO (19:14)
[2022-02-18] MEDS ORDERED: IPRA0.2S9 IH (19:14)
[2022-02-18] MEDS ORDERED: MAGN400O6 PO (19:14)
[2022-02-18] MEDS ORDERED: MAGN400T26 PO (19:14)
--- NOTE | 2022-02-18 19:40 | NUR ---
BLOOD WORK COLLECTED AND SENT TO LAB
--- NOTE | 2022-02-18 19:45 | NUR ---
URINE COLLECTED AND SENT TO LAB
--- NOTE | 2022-02-18 19:51 | NUR ---
COVID SWAB COLLECTED SENT TO LAB
--- NOTE | 2022-02-18 19:52 | NUR ---
RAD AT BEDSIDE
[2022-02-18 19:56] LABS: ALANINE AMINOTRANSFERASE 32 U/L (12-78); ALBUMIN 2.5 g/dL (3.4-5.0); ALKALINE PHOSPHATASE 339 U/L (46-116); ASPARTATE AMINOTRANSFERASE 38 U/L (15-37); BILIRUBIN,DIRECT 0.1 mg/dL (0.0-0.2); BILIRUBIN,TOTAL 0.6 mg/dL (0.2-1.0); CALCIUM, SERUM 8.6 mg/dL (8.5-10.1); CARBON DIOXIDE 28 mmol/L (21-32); CHLORIDE 105 mmol/L (98-107); CREATININE 0.5 mg/dL (0.6-1.3); GLUCOSE 105 mg/dL (74-106); POTASSIUM 3.6 mmol/L (3.5-5.1); SODIUM SERUM 141 mmol/L (136-145); TOTAL PROTEIN, SERUM 6.9 g/dL (6.4-8.2); UREA NITROGEN, BLOOD 10 mg/dL (7-18)
--- NOTE | 2022-02-18 19:57 | NUR ---
MRSA SWAB COLLECTED AND SENT TO LAB. PATIENT'S BELONGINGS LIST DONE.
[2022-02-18 20:12] LABS: BILIRUBIN,URINE NEGATIVE (NEGATIVE); COLOR,URINE YELLOW (YELLOW); LEUKOCYTE ESTERASE ,URINE NEGATIVE (NEGATIVE); NITRITE, URINE NEGATIVE (NEGATIVE); PROTEIN,URINE NEGATIVE (NEGATIVE); UGLUCOSE NEGATIVE (NEGATIVE); UROBILINOGEN,URINE 0.2 EU/dL (0.2)
[2022-02-18 20:22] LABS: BASOPHILS # (AUTO) 0.1 K/uL (0.0-0.2); BASOPHILS % (AUTO) 0.3 % (0.0-2.0); HEMATOCRIT 32 % (33-45); HEMOGLOBIN 10.7 g/dL (11.5-14.8); LYMPHOCYTES # (AUTO) 2.4 K/uL (0.8-4.8); LYMPHOCYTES % (AUTO) 11.6 % (20.0-44.0); MEAN CORPUSCULAR HGB CONC 33 g/dl (31.0-36.0); MEAN CORPUSCULAR VOLUME 100 fL (82-100); MONOCYTES # (AUTO) 1.8 K/uL (0.1-1.30); MONOCYTES % (AUTO) 8.4 % (2.0-12.0); NEUTROPHILS # (AUTO) 16.8 K/uL (1.8-8.9); NEUTROPHILS % (AUTO) 79.7 % (43.0-81.0); PLATELET COUNT (AUTO) 389 K/uL (150-450); RED BLOOD CELL COUNT(AUTO) 3.22 MIL/uL (4.0-5.2); WHITE BLOOD COUNT (AUTO) 21.1 K/uL (4.3-11.0)
--- NOTE | 2022-02-18 20:27 | NUR ---
POWER OF ATT. ALLY [phone]
[2022-02-18 20:32] LABS: BACTERIA,URINE Few /HPF (None Seen); RBC,URINE 0-2 /HPF (0-2); SQUAMOUS EPITHELIAL CELL,UR Few /HPF (None Seen)
--- NOTE | 2022-02-18 21:37 | NUR ---
BED 104
--- NOTE | 2022-02-18 21:50 | NUR ---
MERE RN WILL CALL BACK FOR REPORT
[2022-02-18] MEDS ORDERED: MAG HYDROX/AL HYDROX/SIMETH 30 ML UDC PO PRN ×2 (22:00)
[2022-02-18] MEDS ORDERED: ONDANSETRON HCL/PF 4 MG/2 ML VIAL IVP PRN (22:00)
[2022-02-18] MEDS ORDERED: MAGNESIUM HYDROXIDE 30 ML UDC PO PRN ×2 (22:00)
[2022-02-18] MEDS ORDERED: Z GUARD REMEDY 4 OZ OINT TP PRN (22:00)
[2022-02-18] MEDS ORDERED: VANCOMYCIN 1 GM in IV D5W 250ml IV ONE (22:00)
--- NOTE | 2022-02-18 22:01 | NUR ---
REPORT GIVEN TO GLORIA DANIEL
[2022-02-18 22:20] VITALS: BP 125/60
--- NOTE | 2022-02-18 22:20 | NUR ---
FUNERAL LIMOUSINE DRIVER NOTES: RECEIVED REPORT FROM GLORIA LOYOLA. PATIENT TRANSFERRED FROM ER VIA STRETCHER, PLACE IN ROOM 104 BED 1. ADMITTING DIAGNOSIS OF SEPSIS, PNA. PT AWAKE, ALERTX1-2 AND RESPONSIVE TO PAINFUL STIMULI. NOTED WITH EPISODE OF SLURRED SPEECH. PT CAME FROM ER WITH SIMPLE MASK AT 10L/MIN BUT O2 SAT 87-88%. APPLIED NON-REBREATHER WITH 15L/MIN, O2 SAT INCREASE TO 92-93%. IV ACCESS ON LFA#20G INTACT AND PATENT NO S/S OF INFILTRATIONS. TEMP NOTED 99.2, HEART LPDR-[id number]. BP STABLE. NO C/O PAIN OR DISCOMFORT. NO ACUTE DISTRESS. BODY ASSESSMENT DONE. NOTED SKIN RASHES ON BACK OF THE HEAD AND RT HAND WITH MILD EDEMA+2. NO OTHER OPEN SKIN OR SKIN DISCOLORATIONS NOTED ON ANY PART OF THE BODY. PROVIDED GOOD SKIN CARE. APPLIED HOSPITAL GOWN. ALL SAFETY MEASURES IN PLACE. BED IN LOWEST POSITION AND LOCKED. SIDE RAILS UP X3, PLACE CALL LIGHT WITH IN REACH. WILL CONTINUE TO MONITOR
[2022-02-18] MEDS ORDERED: VANCOMYCIN 1 GM VIAL ONE (23:02)
[2022-02-18] MEDS ORDERED: PIPERACILLIN /TAZOBACTAM 3.375 G VIAL IV ONE (23:03)
[2022-02-18] MEDS: IV NS 0.9% 1,000 ML IV PRN (23:07)
[2022-02-18] MEDS: SENNOSIDES 8.6 MG TABLET PO SCH (23:25)
[2022-02-18] MEDS: DULOXETINE HCL 30 MG CAPSULE.DR PO SCH (23:25)
[2022-02-19] VITALS: BP 127/59
[2022-02-19] MEDS: ZOSYN IVPB 3.375 G in IV D5W 50ml IV SCH ×2 (00:39→05:36)
[2022-02-19] MEDS: MORPHINE SULFATE INJ 2 MG/ML DISP.SYRIN IV PRN ×2 (03:38→10:40)
[2022-02-19 04:00] VITALS: BP 95/49
[2022-02-19] MEDS ORDERED: PIPERACILLIN /TAZOBACTAM 3.375 G VIAL IV ONE (05:31)
--- NOTE | 2022-02-19 06:50 | NUR ---
RN CLOSING NOTES: PT ASLEEP IN BED BUT EASILY AROUSABLE, AWAKE, ALERTX1-2 AND RESPONSIVE TO PAINFUL STIMULI. NOTED WITH EPISODE OF SLURRED SPEECH. ON NON-REBREATHER WITH 15L/MIN, O2 SAT 99%. IV ACCESS ON LFA#20G INTACT AND PATENT NO S/S OF INFILTRATIONS. NO C/O PAIN OR DISCOMFORT. NO ACUTE DISTRESS. ALL DUE MEDS GIVEN ORDERED. PROVIDED GOOD SKIN CARE. PT'S DAUGHTER ALLY HER POWER OF INTERNATIONAL BANKER CALLED, GAVE HER DETAIL INFORMATIONS REGARDING PT'S CONDITIONS. ALL SAFETY MEASURES IN PLACE. BED IN LOWEST POSITION AND LOCKED. SIDE RAILS UP X3, PLACE CALL LIGHT WITH IN REACH. WILL ENDORSE TO MORNING SHIFT NURSE
[2022-02-19 07:02] LABS: CARBON DIOXIDE 27 mmol/L (21-32); CHLORIDE 106 mmol/L (98-107); CREATININE 0.6 mg/dL (0.6-1.3); GLUCOSE 118 mg/dL (74-106); MAGNESIUM 1.6 mg/dL (1.8-2.4); PHOSPHORUS 3.3 mg/dL (2.5-4.9); POTASSIUM 3.2 mmol/L (3.5-5.1); SODIUM SERUM 141 mmol/L (136-145); UREA NITROGEN, BLOOD 14 mg/dL (7-18)
[2022-02-19] MEDS ORDERED: PANTOPRAZOLE 40 MG TABLET.DR PO SCH (07:30)
--- NOTE | 2022-02-19 07:45 | NUR ---
RN NOTES RESTING IN BED, NOT IN ACUTE DISTRESS. BREATHING EVEN AND UNLABORED ON NRB AT 15L. ABLE TO MAKE NEEDS KNOWN, VERBALLY RESPONSIVE. IVF CONTINUOUS. SAFETY MEASURES IN PLACE. WILL CONTINUE TO MONITOR.
[2022-02-19 07:50] LABS: BASOPHILS % (AUTO) 0.1 % (0.0-2.0); HEMATOCRIT 26 % (33-45); HEMOGLOBIN 9.6 g/dL (11.5-14.8); LYMPHOCYTES # (AUTO) 1.9 K/uL (0.8-4.8); LYMPHOCYTES % (AUTO) 9.2 % (20.0-44.0); MEAN CORPUSCULAR HGB CONC 37 g/dl (31.0-36.0); MEAN CORPUSCULAR VOLUME 107 fL (82-100); MONOCYTES # (AUTO) 1.9 K/uL (0.1-1.30); MONOCYTES % (AUTO) 9.1 % (2.0-12.0); NEUTROPHILS # (AUTO) 16.9 K/uL (1.8-8.9); NEUTROPHILS % (AUTO) 81.6 % (43.0-81.0); PLATELET COUNT (AUTO) 314 K/uL (150-450); RED BLOOD CELL COUNT(AUTO) 2.46 MIL/uL (4.0-5.2); WHITE BLOOD COUNT (AUTO) 20.7 K/uL (4.3-11.0)
[2022-02-19] MEDS: PANTOPRAZOLE 40 MG TABLET.DR PO SCH (08:45)
[2022-02-19] MEDS: FERROUS SULFATE (325 MG) 325 MG/TAB TABLET PO SCH (09:01)
[2022-02-19] MEDS: GABAPENTIN 300 MG CAPSULE PO SCH ×2 (09:01→21:32)
[2022-02-19] MEDS: LIDOCAINE 5% (PATCH) 1 EA PATCH TP SCH (09:01)
[2022-02-19] MEDS: BACLOFEN (10 MG) 10 MG TABLET PO SCH ×2 (09:01→17:07)
[2022-02-19] MEDS: MAGNESIUM OXIDE 400 MG TABLET PO SCH ×2 (09:01→16:20)
[2022-02-19] MEDS: POLYETHYLENE GLYCOL 3350 17 GM POWD.PACK PO SCH (09:01)
[2022-02-19] MEDS: VERAPAMIL SR 120 MG TABLET.SA PO SCH ×2 (09:05→21:00)
[2022-02-19] MEDS: APIXABAN 5 MG TABLET PO SCH ×2 (09:07→21:32)
[2022-02-19 10:32] LABS: ABG BASE EXCESS 1.9 mmol/L; ABG OXYGEN SATURATION 95.9 % (92.0-98.5); ABG PCO2 35.7 mmHg (35.0-45.0); ABG PH 7.471 (7.350-7.450); ABG PO2 79.6 mmHg (75.0-100.0); AaDO2 525.5 mmHg; COHb 0.3 % (0.5-1.5); O2Hb 95.6 % (94.0-97.0); SITE, ABG Right Radial; VENT MODE, BG 15LPM NRB
[2022-02-19] MEDS: VANCOMYCIN 500 MG in IV D5W 100ml IV SCH ×2 (11:40→22:55)
[2022-02-19] MEDS: POTASSIUM CHLORIDE 20 MEQ POWDER PACKET PO SCH ×2 (11:40→12:45)
[2022-02-19 12:00] VITALS: BP 91/57
--- NOTE | 2022-02-19 12:00 | NUR ---
RN NOTES PATIENT SEEN BY DR. ROBERTS AT BEDSIDE, MADE AWARE OF PLAN OF CARE.
[2022-02-19] MEDS: PIPERACILLIN /TAZOBACTAM 3.375 G in IV D5W 100 ML IV SCH ×2 (12:45→20:11)
[2022-02-19] MEDS: HYDROCODONE/APAP 5/325MG TABLET PO PRN (14:29)
[2022-02-19 16:00] VITALS: BP 97/63
--- NOTE | 2022-02-19 18:50 | NUR ---
RN NOTES SISTER AT BEDSIDE TO SEE THE PATIENT.
--- NOTE | 2022-02-19 19:02 | NUR ---
RN NOTES IVF CONTINUOUS; DUE MEDS GIVEN TODAY. SAFETY MEASURES MAINTAINED. WILL ENDORSE TO BRAKE DRUM LATHE OPERATOR RN FOR BRIGIDO.
[2022-02-19 20:00] VITALS: BP 99/45
--- NOTE | 2022-02-19 20:00 | NUR ---
TOBACCO SWEEPER NOTE PT IN BED AWAKE. A/O X 1-2, NO SOB NOTED. DENIES PAIN. NO DISTRESS OR DISCOMFORT NOTED. REMAIN ON NRB MASK 15L O2 SAT 98%. AT TIMES PT REMOVING THE MASK. REMINDED HER NOT TO DO THAT. ON TELE MONITOR ST HR 106. IVF NS INFUSING AT 75 ML/HR LFA NO S/S OF INFILTRATION NOTED. LOWER EXT'S ARE CONTRACTED. KEPT HER DRY AND CLEAN. ALL NEEDS ATTENDED. KEPT HER HOB ELEVATED. REPOSITION HER FOR COMFORT AND SKIN MANAGEMENT. VSS. CONTINUE TO MONITOR HER.
[2022-02-19] MEDS ORDERED: Magnesium 1GM/D5W 100ML PREMIX PIGGYBACK IV ONE (21:00)
--- NOTE | 2022-02-19 21:00 | NUR ---
CAGER OPERATOR NOTE INFORMED MD WALL THAT MAG LEVEL IS 1.6 THIS MORNING MD GAVE NEW ORDER 1 GM OF IVPB MAG. BUT AFTER RECHECKING THE MEDICATION LIST NOTED. MAG OXIDE BID, INFORMED AND PHARMACY AND ORDER OF IG MAG IVPG CANCELLED.
[2022-02-19] MEDS: DULOXETINE HCL 30 MG CAPSULE.DR PO SCH (21:32)
[2022-02-19] MEDS: SENNOSIDES 8.6 MG TABLET PO SCH (21:34)
[2022-02-20] VITALS: BP 107/61
[2022-02-20] MEDS: IPRATROPIUM NEB FS 0.5 MG/2.5 ML AMPUL.NEB IH SCH ×4 (01:59→19:41)
[2022-02-20] MEDS: ALBUTEROL FS 2.5 MG/3 ML VIAL.NEB IH SCH ×4 (01:59→19:41)
[2022-02-20] MEDS: PIPERACILLIN /TAZOBACTAM 3.375 G in IV D5W 100 ML IV SCH ×3 (03:24→21:46)
[2022-02-20 04:00] VITALS: BP 119/66
--- NOTE | 2022-02-20 06:30 | NUR ---
WORD PROCESSING SUPERVISOR NOTE NO CHANGE IN CONDITION. PT AWAKE. NO DISTRESS OR DISCOMFORT NOTED. DENIES PAIN. REMAIN. ST HR 102.. KEPT HER DRY AND CLEAN. ALL NEEDS ATTENDED. REPOSITION HER Q2H. WILL ENDORSE TO DAY SHIFT NURSE FOR CONTINUE TO CARE.
[2022-02-20 07:01] LABS: CREATININE 0.8 mg/dL (0.6-1.3); MAGNESIUM 1.4 mg/dL (1.8-2.4); PHOSPHORUS 2.9 mg/dL (2.5-4.9); POTASSIUM 2.9 mmol/L (3.5-5.1)
[2022-02-20 07:19] LABS: BASOPHILS % (AUTO) 0.1 % (0.0-2.0); EOSINOPHILS % (AUTO) 0.4 % (0.0-6.0); HEMATOCRIT 24 % (33-45); HEMOGLOBIN 8.8 g/dL (11.5-14.8); LYMPHOCYTES # (AUTO) 0.9 K/uL (0.8-4.8); LYMPHOCYTES % (AUTO) 7.8 % (20.0-44.0); MEAN CORPUSCULAR HGB CONC 37 g/dl (31.0-36.0); MEAN CORPUSCULAR VOLUME 106 fL (82-100); MONOCYTES # (AUTO) 1.1 K/uL (0.1-1.30); MONOCYTES % (AUTO) 9.7 % (2.0-12.0); NEUTROPHILS # (AUTO) 9.6 K/uL (1.8-8.9); PLATELET COUNT (AUTO) 329 K/uL (150-450); RED BLOOD CELL COUNT(AUTO) 2.25 MIL/uL (4.0-5.2); WHITE BLOOD COUNT (AUTO) 11.7 K/uL (4.3-11.0)
[2022-02-20] MEDS: PANTOPRAZOLE 40 MG TABLET.DR PO SCH (07:30)
--- NOTE | 2022-02-20 07:31 | NUR ---
RN OPENING NOTE PATIENT RECEIVED IN BED, AWAKE. PATIENT ON NRB AT 15L O2 WITH NO SIGNS OF LABORED BREATHING, HOB 30 DEGREES. LEFT FA 20G IV IN PLACE RUNNING NS AT 75 CC/HR. BED LOCKED AND IN LOWEST POSITION, CALL LIGHT WITHIN REACH, 3 SIDE RAILS UP. WILL CONTINUE TO MONITOR.
[2022-02-20 08:00] VITALS: BP 127/64
[2022-02-20] MEDS: GABAPENTIN 300 MG CAPSULE PO SCH ×2 (08:20→21:49)
[2022-02-20] MEDS: BACLOFEN (10 MG) 10 MG TABLET PO SCH ×2 (08:20→17:25)
[2022-02-20] MEDS: APIXABAN 5 MG TABLET PO SCH ×2 (08:20→21:48)
[2022-02-20] MEDS: MAGNESIUM OXIDE 400 MG TABLET PO SCH ×2 (08:20→17:25)
[2022-02-20] MEDS: POLYETHYLENE GLYCOL 3350 17 GM POWD.PACK PO SCH (08:20)
[2022-02-20] MEDS: FERROUS SULFATE (325 MG) 325 MG/TAB TABLET PO SCH (08:20)
[2022-02-20] MEDS: VERAPAMIL SR 120 MG TABLET.SA PO SCH ×2 (08:23→21:51)
[2022-02-20] MEDS: LIDOCAINE 5% (PATCH) 1 EA PATCH TP SCH (08:26)
[2022-02-20] MEDS: IV NS 0.9% 1,000 ML IV PRN (09:42)
[2022-02-20] MEDS: Magnesium 1GM/D5W 100ML PREMIX 100 ML IV SCH ×4 (10:01→13:02)
[2022-02-20] MEDS: POTASSIUM CL. PREMIX PERIPHER. 50 ML IV SCH ×6 (10:02→15:13)
[2022-02-20] MEDS: VANCOMYCIN 500 MG in IV D5W 100ml IV SCH ×2 (11:09→21:56)
[2022-02-20 12:00] VITALS: BP 132/69
[2022-02-20] MEDS: ACETAMINOPHEN 325 MG TABLET PO PRN (15:17)
[2022-02-20 16:00] VITALS: BP 143/73
--- NOTE | 2022-02-20 18:36 | NUR ---
RN CLOSING NOTE PATIENT REMAINS IN BED, AWAKE. PATIENT ON 6L O2 NC WITH NO SIGNS OF LABORED BREATHING, HOB 30 DEGREES THROUGHOUT SHIFT ORDERED. LEFT FA 20G IV IN PLACE RUNNING NS AT 75 CC/HR. ALL NEEDS ATTENDED DURING SHIFT. BED LOCKED AND IN LOWEST POSITION, CALL LIGHT WITHIN REACH, 3 SIDE RAILS UP. WILL ENDORSE TO BRICK TENDER NURSE.
[2022-02-20 20:00] VITALS: BP 145/83
[2022-02-20] MEDS: DULOXETINE HCL 30 MG CAPSULE.DR PO SCH (21:49)
[2022-02-20] MEDS: SENNOSIDES 8.6 MG TABLET PO SCH (21:56)
[2022-02-21] VITALS: BP 101/50
[2022-02-21] MEDS: IPRATROPIUM NEB FS 0.5 MG/2.5 ML AMPUL.NEB IH SCH ×4 (01:26→19:41)
[2022-02-21] MEDS: ALBUTEROL FS 2.5 MG/3 ML VIAL.NEB IH SCH ×4 (01:26→19:41)
[2022-02-21] MEDS: IV NS 0.9% 1,000 ML IV PRN ×2 (01:49→15:00)
--- NOTE | 2022-02-21 02:24 | NUR ---
RN notes Resting comfortably in bed with no distress noted. Breathing even and unlabored. On O2 at 5lpm via nasal cannula. Alert with confusion. Verbally able to communicate needs. No physical manifestation of pain or discomfort. No significant change of condition. Vital signs wnl. Kept clean and dry. Will endorse to next shift for continuity of care.
[2022-02-21 04:00] VITALS: BP 133/74
[2022-02-21] MEDS: PIPERACILLIN /TAZOBACTAM 3.375 G in IV D5W 100 ML IV SCH ×3 (04:11→20:11)
--- NOTE | 2022-02-21 07:23 | NUR ---
RN OPENING NOTES RECEIVED PATIENT IN BED, AWAKE, VERBALLY RESPONSIVE, NO SIGNS OF ACUTE DISTRESS NOTED. ON O2 @5LPM VIA N/C, SPO2@97%, NO SOB NOTED. BREATHING EVEN AND UNLABORED. ON TELE MONITOR SHOWING SR, HR @98. DENIES ANY PAIN AT THIS TIME. NOTED WITH IV ACCESS ON RIGHT HAND #20G, INTACT AND PATENT, WITH NS @ 75 ML/HR INFUSING WELL. SAFETY MEASURE IN PLACE. BED IN LOWEST AND LOCKED POSITION, SR UP, CALL LIGHT PLACED WITHIN EASY REACH. WILL CONTINUE TO MONITOR PATIENT.
[2022-02-21 07:26] LABS: CARBON DIOXIDE 24 mmol/L (21-32); CHLORIDE 107 mmol/L (98-107); CREATININE 0.4 mg/dL (0.6-1.3); GLUCOSE 95 mg/dL (74-106); MAGNESIUM 2.1 mg/dL (1.8-2.4); PHOSPHORUS 2.6 mg/dL (2.5-4.9); POTASSIUM 3.7 mmol/L (3.5-5.1); SODIUM SERUM 139 mmol/L (136-145); UREA NITROGEN, BLOOD 9 mg/dL (7-18)
[2022-02-21] MEDS: PANTOPRAZOLE 40 MG TABLET.DR PO SCH (07:56)
[2022-02-21 08:00] VITALS: BP 139/75
[2022-02-21] MEDS: POLYETHYLENE GLYCOL 3350 17 GM POWD.PACK PO SCH (08:42)
[2022-02-21] MEDS: MAGNESIUM OXIDE 400 MG TABLET PO SCH ×2 (08:42→17:10)
[2022-02-21] MEDS: LIDOCAINE 5% (PATCH) 1 EA PATCH TP SCH (08:42)
[2022-02-21] MEDS: GABAPENTIN 300 MG CAPSULE PO SCH ×2 (08:43→20:35)
[2022-02-21] MEDS: BACLOFEN (10 MG) 10 MG TABLET PO SCH ×2 (08:43→17:10)
[2022-02-21] MEDS: FERROUS SULFATE (325 MG) 325 MG/TAB TABLET PO SCH (08:43)
[2022-02-21] MEDS: APIXABAN 5 MG TABLET PO SCH ×2 (08:45→20:37)
[2022-02-21] MEDS: VERAPAMIL SR 120 MG TABLET.SA PO SCH ×2 (08:46→20:42)
[2022-02-21 09:04] LABS: BASOPHILS % (AUTO) 0.3 % (0.0-2.0); EOSINOPHILS % (AUTO) 1.4 % (0.0-6.0); HEMATOCRIT 27 % (33-45); HEMOGLOBIN 9.1 g/dL (11.5-14.8); LYMPHOCYTES # (AUTO) 1.7 K/uL (0.8-4.8); LYMPHOCYTES % (AUTO) 16.2 % (20.0-44.0); MEAN CORPUSCULAR HGB CONC 34 g/dl (31.0-36.0); MEAN CORPUSCULAR VOLUME 99 fL (82-100); MONOCYTES # (AUTO) 0.8 K/uL (0.1-1.30); MONOCYTES % (AUTO) 8.1 % (2.0-12.0); NEUTROPHILS # (AUTO) 7.6 K/uL (1.8-8.9); PLATELET COUNT (AUTO) 386 K/uL (150-450); RED BLOOD CELL COUNT(AUTO) 2.73 MIL/uL (4.0-5.2); WHITE BLOOD COUNT (AUTO) 10.2 K/uL (4.3-11.0)
[2022-02-21] MEDS: VANCOMYCIN HCL 0.75 GM in IV D5W 250 ML IV SCH ×2 (09:33→21:21)
[2022-02-21] MEDS: HYDROCODONE/APAP 5/325MG TABLET PO PRN ×2 (10:34→18:27)
[2022-02-21 12:00] VITALS: BP 97/55
[2022-02-21 16:00] VITALS: BP 96/55
--- NOTE | 2022-02-21 18:44 | NUR ---
RN CLOSING NOTES PATIENT IN BED, AWAKE, VERBALLY RESPONSIVE, NO SIGNS OF ACUTE DISTRESS. SISTER AT BEDSIDE. CURRENTLY ON O2 @4LPM VIA N/C, SPO2 @97%, NO SOB NOTED, BREATHING EVEN AND UNLABORED. REMAINS ON TELE MONITOR CURRENTLY SHOWING SINUS RHYTHM, HR @94. MEDICATED WITH NORCO 5/325 MG FOR PAIN. IV ACCESS ON RIGHT HAND #20G, INTACT AND PATENT, WITH NS @ 75 ML/HR INFUSING WELL. ALL DUE MEDS GIVEN, TOLERATED WELL. SAFETY MEASURE IN PLACE. BED IN LOWEST AND LOCKED POSITION, SR UP, CALL LIGHT PLACED WITHIN EASY REACH. WILL ENDORSE TO NEXT SHIFT FOR CONTINUITY OF CARE.
--- NOTE | 2022-02-21 19:30 | NUR ---
RN OPENING NOTES RECEIVED PATIENT IN BED, AWAKE, IN SEMI EL'S POSITION. PT IS A/0 X 2, RESPONDS TO QUESTIONS ACCORDINGLY. ON O2 AT 4LPM VIA N/C, TOLERATING WELL. NO S/SX OF ACUTE DISTRESS NOTED AT THIS TIME. NO SOB. PT DENIES PAIN. IV ACCESS NOTED ON RIGHT HAND #20G, INTACT AND PATENT, FLUSHES WELL, WITH NS RUNNING AT 75 ML/HR. SAFETY MEASURES IN PLACE. BED IN LOWEST AND LOCKED POSITION, SR UP, CALL LIGHT WITHIN EASY REACH. WILL CONTINUE TO MONITOR AND REASSESS FOR ANY CHANGES.
[2022-02-21 20:00] VITALS: BP 98/53
[2022-02-21] MEDS: SENNOSIDES 8.6 MG TABLET PO SCH (21:56)
[2022-02-21] MEDS: DULOXETINE HCL 30 MG CAPSULE.DR PO SCH (21:57)
[2022-02-22] VITALS: BP 102/62
[2022-02-22] MEDS: IPRATROPIUM NEB FS 0.5 MG/2.5 ML AMPUL.NEB IH SCH ×4 (01:20→20:52)
[2022-02-22] MEDS: ALBUTEROL FS 2.5 MG/3 ML VIAL.NEB IH SCH ×4 (01:20→20:52)
[2022-02-22] MEDS: PIPERACILLIN /TAZOBACTAM 3.375 G in IV D5W 100 ML IV SCH ×3 (03:10→21:58)
[2022-02-22 04:00] VITALS: BP 117/63
[2022-02-22 06:37] LABS: BASOPHILS % (AUTO) 0.4 % (0.0-2.0); EOSINOPHILS % (AUTO) 4.1 % (0.0-6.0); HEMATOCRIT 27 % (33-45); HEMOGLOBIN 9.2 g/dL (11.5-14.8); LYMPHOCYTES # (AUTO) 2.4 K/uL (0.8-4.8); LYMPHOCYTES % (AUTO) 25.1 % (20.0-44.0); MEAN CORPUSCULAR HGB CONC 34 g/dl (31.0-36.0); MEAN CORPUSCULAR VOLUME 102 fL (82-100); MONOCYTES # (AUTO) 1.2 K/uL (0.1-1.30); NEUTROPHILS # (AUTO) 5.7 K/uL (1.8-8.9); NEUTROPHILS % (AUTO) 58.4 % (43.0-81.0); PLATELET COUNT (AUTO) 406 K/uL (150-450); RED BLOOD CELL COUNT(AUTO) 2.67 MIL/uL (4.0-5.2); WHITE BLOOD COUNT (AUTO) 9.7 K/uL (4.3-11.0)
[2022-02-22 07:04] LABS: CALCIUM, SERUM 8.2 mg/dL (8.5-10.1); CARBON DIOXIDE 25 mmol/L (21-32); CHLORIDE 107 mmol/L (98-107); CREATININE 0.6 mg/dL (0.6-1.3); GLUCOSE 82 mg/dL (74-106); MAGNESIUM 1.7 mg/dL (1.8-2.4); PHOSPHORUS 3.1 mg/dL (2.5-4.9); POTASSIUM 3.5 mmol/L (3.5-5.1); SODIUM SERUM 141 mmol/L (136-145); UREA NITROGEN, BLOOD 8 mg/dL (7-18)
--- NOTE | 2022-02-22 07:13 | NUR ---
RN CLOSING NOTES PATIENT REMAINED STABLE THROUGHOUT THE NIGHT. ON 4L O2 NC WITH NO SIGNS OF LABORED BREATHING, KEPT HOB ELEVATED AT 30 DEGREES. PT HAS IV LINE NOTED AT RIGHT HAND, NO INFILTRATION NOTED, RUNNING NS AT 75 CC/HR. ALL DUE MEDS GIVEN. ALL NEEDS ATTENDED TO DURING SHIFT. BED LOCKED AND IN LOWEST POSITION, CALL LIGHT WITHIN REACH, 3 SIDE RAILS UP. WILL ENDORSE TO AM SHIFT NURSE FOR BRIGIDO.
--- NOTE | 2022-02-22 07:43 | NUR ---
FRONT END MECHANIC OPENING NOTE Pateint in bed, asleep. A/O x 1-2. On O2 at 4 LPM via NC, breathing evenly and unlabored. No SOB or s/s of distress noted. IV access on Right hand #20G infusing NS at 75 ml/hr. On tele monitoring showing SR, HR on the 's. Safety precautions in place: bed in low, locked position; siderails up x 2; call light within reach. Will continue to monitor. Addendum: 02/22/22 at 1857 by FARSHAD RODRIGUEZ RN CORRECTION: On tele monitoring showing SR, HR on the 60's.
[2022-02-22 08:00] VITALS: BP 129/64
[2022-02-22] MEDS: PANTOPRAZOLE 40 MG TABLET.DR PO SCH (08:56)
[2022-02-22] MEDS: GABAPENTIN 300 MG CAPSULE PO SCH ×2 (08:57→22:00)
[2022-02-22] MEDS: BACLOFEN (10 MG) 10 MG TABLET PO SCH ×2 (08:57→17:13)
[2022-02-22] MEDS: POLYETHYLENE GLYCOL 3350 17 GM POWD.PACK PO SCH (08:57)
[2022-02-22] MEDS: MAGNESIUM OXIDE 400 MG TABLET PO SCH ×2 (08:57→17:13)
[2022-02-22] MEDS: FERROUS SULFATE (325 MG) 325 MG/TAB TABLET PO SCH (08:57)
[2022-02-22] MEDS: VANCOMYCIN HCL 0.75 GM in IV D5W 250 ML IV SCH ×2 (08:58→22:15)
[2022-02-22] MEDS: APIXABAN 5 MG TABLET PO SCH ×2 (09:02→22:10)
[2022-02-22] MEDS: LIDOCAINE 5% (PATCH) 1 EA PATCH TP SCH (09:03)
[2022-02-22] MEDS: VERAPAMIL SR 120 MG TABLET.SA PO SCH ×2 (09:08→21:00)
[2022-02-22 12:00] VITALS: BP 122/61
[2022-02-22 16:00] VITALS: BP 110/62
[2022-02-22] MEDS: IV NS 0.9% 1,000 ML IV PRN (18:03)
[2022-02-22] MEDS: HYDROCODONE/APAP 5/325MG TABLET PO PRN (18:21)
--- NOTE | 2022-02-22 18:21 | NUR ---
RN NOTE Patient complained of pain on both feet, 05/18. PRN [place] given. Will continue to monitor patient.
--- NOTE | 2022-02-22 18:55 | NUR ---
BEEF SKINNER CLOSING NOTE Patient in bed, resting. A/O x 2. able to make needs known. On O2 at 4 LPM via NC, breathing evenly and unlabored. No SOB or s/s of distress noted. IV access on Right hand #20G infusing NS at 75 ml/hr. On tele monitoring showing SR, HR 81. All needs attended to. Due meds given. Safety precautions maintained: bed in low, locked position; siderails up x 2; call light within reach. Will endorse to night baker nurse for BRIGIDO.
[2022-02-22 20:00] VITALS: BP 104/50
[2022-02-22] MEDS: DULOXETINE HCL 30 MG CAPSULE.DR PO SCH (21:59)
[2022-02-22] MEDS: SENNOSIDES 8.6 MG TABLET PO SCH (22:03)
[2022-02-23] VITALS: BP 110/52
[2022-02-23] MEDS: ALBUTEROL FS 2.5 MG/3 ML VIAL.NEB IH SCH ×4 (01:36→20:09)
[2022-02-23] MEDS: IPRATROPIUM NEB FS 0.5 MG/2.5 ML AMPUL.NEB IH SCH ×4 (01:36→20:09)
[2022-02-23 04:00] VITALS: BP 136/51
[2022-02-23] MEDS: ACETAMINOPHEN 325 MG TABLET PO PRN ×2 (04:02→21:12)
[2022-02-23] MEDS: PIPERACILLIN /TAZOBACTAM 3.375 G in IV D5W 100 ML IV SCH ×3 (04:04→20:24)
[2022-02-23 06:01] LABS: CALCIUM, SERUM 7.7 mg/dL (8.5-10.1); CARBON DIOXIDE 25 mmol/L (21-32); CHLORIDE 107 mmol/L (98-107); CREATININE 0.6 mg/dL (0.6-1.3); GLUCOSE 91 mg/dL (74-106); MAGNESIUM 1.5 mg/dL (1.8-2.4); PHOSPHORUS 3.4 mg/dL (2.5-4.9); UREA NITROGEN, BLOOD 7 mg/dL (7-18)
--- NOTE | 2022-02-23 06:02 | NUR ---
RN notes In bed, resting comfortably with no distress noted. Breathing even and unlabored. Changed nasal cannula to regular mask form 2lpm to 10lpm due to low saturation0. O2sat went up from 87% to 96%. Verbally able to communicate needs. No complaint of pain or discomfort. No significant change of condition. Vital signs wnl. Kept clean and dry. Will endorse to next shift for continuity of care.
[2022-02-23 06:08] LABS: SODIUM SERUM 139 mmol/L (136-145)
[2022-02-23 06:11] LABS: POTASSIUM 2.7 mmol/L (3.5-5.1)
[2022-02-23] MEDS: IV NS 0.9% 1,000 ML IV PRN (06:30)
[2022-02-23 06:44] LABS: BASOPHILS % (AUTO) 0.3 % (0.0-2.0); EOSINOPHILS % (AUTO) 2.1 % (0.0-6.0); HEMATOCRIT 22 % (33-45); HEMOGLOBIN 7.9 g/dL (11.5-14.8); LYMPHOCYTES # (AUTO) 1.7 K/uL (0.8-4.8); LYMPHOCYTES % (AUTO) 15.3 % (20.0-44.0); MEAN CORPUSCULAR HGB CONC 36 g/dl (31.0-36.0); MEAN CORPUSCULAR VOLUME 108 fL (82-100); MONOCYTES # (AUTO) 1.3 K/uL (0.1-1.30); MONOCYTES % (AUTO) 11.9 % (2.0-12.0); NEUTROPHILS # (AUTO) 7.7 K/uL (1.8-8.9); NEUTROPHILS % (AUTO) 70.4 % (43.0-81.0); PLATELET COUNT (AUTO) 399 K/uL (150-450); RED BLOOD CELL COUNT(AUTO) 2.05 MIL/uL (4.0-5.2)
--- NOTE | 2022-02-23 07:00 | NUR ---
RN OPENING NOTES PATIENT IN BED, A/O X 4, TOLERATING WELL ON 2 LPM O2 VIA CANNULA WITH SATURATION OF 99%, NO S/S OF RESPIRATORY DISTRESS NOTED. PATIENT ABLE TO MAKE NEEDS KNOWN. R HAND # 20 CLEAN, INTACT, AND FLUSHING WELL. NO COMPLAINTS OF PAIN OR DISCOMFORT AT THIS TIME. TELE MONTIOR READING SINUS TACH 100. WILL CONTINUE TO MONITOR.
[2022-02-23] MEDS: PANTOPRAZOLE 40 MG TABLET.DR PO SCH (07:57)
[2022-02-23 08:00] VITALS: BP 127/61
[2022-02-23] MEDS: Magnesium 1GM/D5W 100ML PREMIX 100 ML IV SCH ×2 (08:33→10:02)
[2022-02-23] MEDS: LIDOCAINE 5% (PATCH) 1 EA PATCH TP SCH (08:33)
[2022-02-23] MEDS: MAGNESIUM OXIDE 400 MG TABLET PO SCH ×2 (08:34→18:32)
[2022-02-23] MEDS: POLYETHYLENE GLYCOL 3350 17 GM POWD.PACK PO SCH (08:34)
[2022-02-23] MEDS: BACLOFEN (10 MG) 10 MG TABLET PO SCH ×2 (08:35→18:32)
[2022-02-23] MEDS: GABAPENTIN 300 MG CAPSULE PO SCH ×2 (08:36→21:11)
[2022-02-23] MEDS: FERROUS SULFATE (325 MG) 325 MG/TAB TABLET PO SCH (08:36)
[2022-02-23] MEDS: VERAPAMIL SR 120 MG TABLET.SA PO SCH ×2 (08:37→21:10)
[2022-02-23] MEDS: APIXABAN 5 MG TABLET PO SCH ×2 (08:44→21:12)
--- NOTE | 2022-02-23 08:49 | NUR ---
RN NOTES MD INFORMED OF PATIENT HGB AND RBC LEVEL AND WHETHER MORNING ELIQUIS SHOULD BE HELD. AWAITING FURTHER ORDERS.
[2022-02-23] MEDS: VANCOMYCIN HCL 0.75 GM in IV D5W 250 ML IV SCH (11:46)
[2022-02-23 12:00] VITALS: BP 126/68
[2022-02-23] MEDS: POTASSIUM CHLORIDE 20 MEQ TAB.PRT.SR PO SCH ×2 (15:17→16:00)
[2022-02-23 16:00] VITALS: BP 126/69
--- NOTE | 2022-02-23 19:00 | NUR ---
RN CLOSING NOTES PATIENT IN BED, A/O X 4, TOLERATING WELL ON 2 LPM O2 VIA CANNULA WITH SATURATION OF 99%, NO S/S OF RESPIRATORY DISTRESS NOTED. PATIENT ABLE TO MAKE NEEDS KNOWN. R HAND # 20 CLEAN, INTACT, AND FLUSHING WELL. NO COMPLAINTS OF PAIN OR DISCOMFORT AT THIS TIME. TELE MONTIOR READING SINUS TACH 98. WILL ENDORSE TO LIME KILN WORKER FOR BRIGIDO.
--- NOTE | 2022-02-23 19:27 | NUR ---
RN NOTE PT RECEIVED IN BED. PT CURRENTLY ON 3L OF O2 VIA NC SHOWING NO S/SX OF RESP DISTRESS. BREATHING EVEN AND UNLABORED. PT IS A/OX2-3, ABLE TO VERBALIZE NEEDS. ON [place]IL[place] ACTOR SHOWING NSR. PT ON PUREED DIET. IV ACCESS NOTED ON RIGHT HAND RUNNING 0.9% NS AT 75 CC/HR. ALL SAFETY MEASURES IMPLEMENTED. CALL LIGHT WITHIN REACH. BED LOCKED AND IN LOWEST POSITION. SIDE RAILS UP. WILL CONTINUE TO MONITOR AND ASSESS FOR ANY CHANGES DURING SHIFT.
[2022-02-23 20:00] VITALS: BP 136/84
--- NOTE | 2022-02-23 20:20 | NUR ---
GLORIA NOTE SCHEDULED 1200 ZOSYN NOT GIVEN. JULIET GAXIOLA, WILL ADMINISTER 2000 DOSE. Addendum: 02/24/22 at 0611 by IVANNA WARREN RN RN NOTE SCHEDULED 1200 ZOSYN NOT GIVEN BY FARSHAD GAXIOLA, WILL ADMINISTER 2000 DOSE.
[2022-02-23] MEDS: SENNOSIDES 8.6 MG TABLET PO SCH (21:09)
[2022-02-23] MEDS: DULOXETINE HCL 30 MG CAPSULE.DR PO SCH (21:10)
[2022-02-24] VITALS: BP 109/55
[2022-02-24] MEDS: VANCOMYCIN HCL 0.75 GM in IV D5W 250 ML IV SCH ×2 (00:57→12:21)
[2022-02-24] MEDS: ALBUTEROL FS 2.5 MG/3 ML VIAL.NEB IH SCH ×4 (01:42→20:17)
[2022-02-24] MEDS: IPRATROPIUM NEB FS 0.5 MG/2.5 ML AMPUL.NEB IH SCH ×4 (01:42→20:17)
[2022-02-24 04:00] VITALS: BP 111/58
[2022-02-24] MEDS: PIPERACILLIN /TAZOBACTAM 3.375 G in IV D5W 100 ML IV SCH ×3 (04:13→20:29)
[2022-02-24] MEDS: IV NS 0.9% 1,000 ML IV PRN (04:13)
--- NOTE | 2022-02-24 06:28 | NUR ---
RN NOTE NO CHANGES IN PT CONDITION DURING SHIFT. PT RESTING COMFORTABLY. PT CURRENTLY ON 3L OF O2 VIA NC SHOWING NO S/SX OF RESP DISTRESS. BREATHING EVEN AND UNLABORED. 0.9% NS RUNNING AT 75 CC/HR VIA RIGHT HAND. ALL SAFETY MEASURES IMPLEMENTED. PT KEPT CLEAN AND COMFORTABLE. ALL DUE MEDS GIVEN ORDERED. WILL ENDORSE TO MORNING SHIFT RN FOR BRIGIDO.
[2022-02-24 07:15] LABS: BASOPHILS % (AUTO) 0.6 % (0.0-2.0); EOSINOPHILS % (AUTO) 4.5 % (0.0-6.0); HEMATOCRIT 23 % (33-45); HEMOGLOBIN 8.3 g/dL (11.5-14.8); LYMPHOCYTES # (AUTO) 2.2 K/uL (0.8-4.8); LYMPHOCYTES % (AUTO) 26.6 % (20.0-44.0); MEAN CORPUSCULAR HGB CONC 36 g/dl (31.0-36.0); MEAN CORPUSCULAR VOLUME 103 fL (82-100); MONOCYTES # (AUTO) 1.4 K/uL (0.1-1.30); MONOCYTES % (AUTO) 16.5 % (2.0-12.0); NEUTROPHILS # (AUTO) 4.4 K/uL (1.8-8.9); NEUTROPHILS % (AUTO) 51.8 % (43.0-81.0); PLATELET COUNT (AUTO) 454 K/uL (150-450); RED BLOOD CELL COUNT(AUTO) 2.26 MIL/uL (4.0-5.2); WHITE BLOOD COUNT (AUTO) 8.4 K/uL (4.3-11.0)
--- NOTE | 2022-02-24 07:28 | NUR ---
RN OPENING NOTE PT RECEIVED IN BED A/O X 3 . PT CURRENTLY ON 3L OF O2 VIA NC SHOWING NO S/SX OF RESP DISTRESS. BREATHING EVEN AND UNLABORED. PATIENT IS ABLE TO VERBALIZE NEEDS. ON TURBINE ASSEMBLER. PT ON PUREED DIET. IV ACCESS NOTED ON RIGHT HAND RUNNING 0.9% NS AT 75 CC/HR. ALL SAFETY MEASURES IMPLEMENTED. CALL LIGHT WITHIN REACH. BED LOCKED AND IN LOWEST POSITION. SIDE RAILS UP, BED ALARM ACTIVATED.
[2022-02-24 07:32] LABS: CALCIUM, SERUM 7.6 mg/dL (8.5-10.1); CREATININE 0.6 mg/dL (0.6-1.3); MAGNESIUM 1.7 mg/dL (1.8-2.4); PHOSPHORUS 3.8 mg/dL (2.5-4.9)
[2022-02-24 07:51] LABS: POTASSIUM 2.4 mmol/L (3.5-5.1)
[2022-02-24 08:00] VITALS: BP 130/52
[2022-02-24] MEDS: FERROUS SULFATE (325 MG) 325 MG/TAB TABLET PO SCH (08:27)
[2022-02-24] MEDS: BACLOFEN (10 MG) 10 MG TABLET PO SCH ×2 (08:27→17:32)
[2022-02-24] MEDS: MAGNESIUM OXIDE 400 MG TABLET PO SCH ×2 (08:27→17:32)
[2022-02-24] MEDS: GABAPENTIN 300 MG CAPSULE PO SCH ×2 (08:27→22:14)
[2022-02-24] MEDS: VERAPAMIL SR 120 MG TABLET.SA PO SCH ×2 (08:29→22:14)
[2022-02-24] MEDS: LIDOCAINE 5% (PATCH) 1 EA PATCH TP SCH (08:30)
[2022-02-24] MEDS: APIXABAN 5 MG TABLET PO SCH ×2 (08:32→22:19)
[2022-02-24] MEDS: PANTOPRAZOLE 40 MG TABLET.DR PO SCH (08:32)
[2022-02-24] MEDS: POLYETHYLENE GLYCOL 3350 17 GM POWD.PACK PO SCH (09:00)
[2022-02-24] MEDS: POTASSIUM CL. PREMIX PERIPHER. 50 ML IV SCH ×4 (09:53→13:28)
[2022-02-24] MEDS ORDERED: POTASSIUM CHLORIDE 20 MEQ POWDER PACKET GT ONE (10:00)
[2022-02-24] MEDS: Magnesium 1GM/D5W 100ML PREMIX 100 ML IV SCH ×2 (11:03→12:21)
[2022-02-24 12:00] VITALS: BP 107/60
[2022-02-24] MEDS: ACETAMINOPHEN 325 MG TABLET PO PRN (13:29)
[2022-02-24] MEDS: HYDROCODONE/APAP 5/325MG TABLET PO PRN (15:46)
[2022-02-24 16:00] VITALS: BP 110/59
--- NOTE | 2022-02-24 18:48 | NUR ---
RN CLOSING NOTE PT RECEIVED IN BED A/O X 3 . PT CURRENTLY ON 3L OF O2 VIA NC SHOWING NO S/SX OF RESP DISTRESS. BREATHING EVEN AND UNLABORED. PATIENT IS ABLE TO VERBALIZE NEEDS. ON CONFIGURATION RELEASE MANAGER. PT ON PUREED DIET. ALL SCHEDULED MEDICATIONS GIVEN. POTASSIUM REPLACED ORDERED. IV ACCESS NOTED ON RIGHT HAND RUNNING 0.9% NS AT 75 CC/HR. ALL SAFETY MEASURES IMPLEMENTED. CALL LIGHT WITHIN REACH. BED LOCKED AND IN LOWEST POSITION. SIDE RAILS UP, BED ALARM ACTIVATED. WILL ENDORSE TO NIGHT NURSE FOR BRIGIDO.
[2022-02-24 20:00] VITALS: BP 123/61
--- NOTE | 2022-02-24 20:00 | NUR ---
TOP LIFT COMPRESSER NOTE RECEIVED PT IN BED A/O X 2, NO SOB, NO DISTRESS OR DISCOMFORT NOTED. DENIES PAIN. ON TELE MONITOR SR HR 89. REMAIN ON O2 2L VIA N/C O2 SAT 96%. IVF NS @ 75 ML/HR INFUSING WELL AT RT HAND #22G, NO S/S OF INFILTRATION NOTED. KEPT HER DRY AND CLEAN. REPOSITION HER FOR SKIN MANAGEMENT AND COMFORT. LOWER EXTREMITIES ARE CONTRACTED, ELEVATED THEM ON PILLOW. SIDE RAILS UP X 2 AND CALL LIGHT WITHIN REACH. VSS. CONTINUE TO MONITOR HER.
[2022-02-24] MEDS: SENNOSIDES 8.6 MG TABLET PO SCH (22:14)
[2022-02-24] MEDS: DULOXETINE HCL 30 MG CAPSULE.DR PO SCH (22:19)
[2022-02-25] VITALS: BP 107/60
[2022-02-25] MEDS: ACETAMINOPHEN 325 MG TABLET PO PRN (01:24)
--- NOTE | 2022-02-25 01:24 | NUR ---
METER CHANGES RECORDS CLERK NOTE PT AWAKE AND C/O PAIN LOWER BACK 01/16, TYLENOL 650 MG PO GIVEN. REPOSITION THE PT AND CONTINUE TO MONITOR.
[2022-02-25] MEDS: ALBUTEROL FS 2.5 MG/3 ML VIAL.NEB IH SCH ×3 (01:25→13:30)
[2022-02-25] MEDS: IPRATROPIUM NEB FS 0.5 MG/2.5 ML AMPUL.NEB IH SCH ×3 (01:25→13:30)
[2022-02-25] MEDS: IV NS 0.9% 1,000 ML IV PRN (02:06)
--- NOTE | 2022-02-25 02:24 | NUR ---
PARACHUTE/COMBATANT DIVER OFFICER NOTE PT ASLEEP, AROUSABLE, PAIN SUBSIDED 11/18. NO FURTHER DISTRESS NOTED.
[2022-02-25 04:00] VITALS: BP 105/56
[2022-02-25] MEDS: PIPERACILLIN /TAZOBACTAM 3.375 G in IV D5W 100 ML IV SCH ×2 (04:46→12:42)
[2022-02-25] MEDS ORDERED: VANCOMYCIN 500 MG in IV D5W 100ml IV SCH (06:00)
[2022-02-25 06:23] LABS: CALCIUM, SERUM 7.8 mg/dL (8.5-10.1); CARBON DIOXIDE 29 mmol/L (21-32); CHLORIDE 109 mmol/L (98-107); CREATININE 0.6 mg/dL (0.6-1.3); GLUCOSE 83 mg/dL (74-106); PHOSPHORUS 3.3 mg/dL (2.5-4.9); POTASSIUM 3.6 mmol/L (3.5-5.1); SODIUM SERUM 144 mmol/L (136-145); UREA NITROGEN, BLOOD 7 mg/dL (7-18)
--- NOTE | 2022-02-25 06:27 | NUR ---
FERRYBOAT OPERATOR CABLE CLOSING NOTES PT IN BED, AWAKE. NO CHANGES IN CONDITION. NO DISTRESS, DISCOMFORT NOTED. NO SI/SX OF PAIN. ON TELE MONITOR, SR HR 89. IVF INFUSING WELL NS AT 75 ML/HR NO SI/SX OF INFILTRATION NOTED. REPOSITIONED Q2H, KEPT DRY AND CLEAN, SIDE RAILS X3, ALL NEEDS ATTENDED. WILL ENDORSE TO DAYSHIFT NURSE TO CONTINUE CARE.
[2022-02-25 06:40] LABS: BASOPHILS # (AUTO) 0.1 K/uL (0.0-0.2); BASOPHILS % (AUTO) 0.7 % (0.0-2.0); EOSINOPHILS % (AUTO) 6.1 % (0.0-6.0); HEMATOCRIT 22 % (33-45); HEMOGLOBIN 7.9 g/dL (11.5-14.8); LYMPHOCYTES # (AUTO) 2.2 K/uL (0.8-4.8); LYMPHOCYTES % (AUTO) 26.7 % (20.0-44.0); MEAN CORPUSCULAR HGB CONC 36 g/dl (31.0-36.0); MEAN CORPUSCULAR VOLUME 102 fL (82-100); MONOCYTES # (AUTO) 1.3 K/uL (0.1-1.30); MONOCYTES % (AUTO) 15.2 % (2.0-12.0); NEUTROPHILS # (AUTO) 4.2 K/uL (1.8-8.9); NEUTROPHILS % (AUTO) 51.3 % (43.0-81.0); PLATELET COUNT (AUTO) 523 K/uL (150-450); RED BLOOD CELL COUNT(AUTO) 2.15 MIL/uL (4.0-5.2); WHITE BLOOD COUNT (AUTO) 8.2 K/uL (4.3-11.0)
--- NOTE | 2022-02-25 07:45 | NUR ---
RN OPENING NOTE PATIENT RECEIVED IN BED, RESTING. PATIENT ON 2L O2 NC WITH NO SIGNS OF LABORED BREATHING AT THIS TIME. RIGHT HAND 22G IV RUNNING NS AT 75 CC/HR. NO SIGNS OF ACUTE DISTRESS NOTED. BED LOCKED AND IN LOWEST POSITION, CALL LIGHT WITHIN REACH, 2 SIDE RAILS UP. WILL CONTINUE TO MONITOR.
[2022-02-25 08:00] VITALS: BP 135/75
[2022-02-25] MEDS: POLYETHYLENE GLYCOL 3350 17 GM POWD.PACK PO SCH (09:02)
[2022-02-25] MEDS: LIDOCAINE 5% (PATCH) 1 EA PATCH TP SCH (09:02)
[2022-02-25] MEDS: PANTOPRAZOLE 40 MG TABLET.DR PO SCH (09:03)
[2022-02-25] MEDS: MAGNESIUM OXIDE 400 MG TABLET PO SCH (09:03)
[2022-02-25] MEDS: FERROUS SULFATE (325 MG) 325 MG/TAB TABLET PO SCH (09:03)
[2022-02-25] MEDS: VERAPAMIL SR 120 MG TABLET.SA PO SCH (09:03)
[2022-02-25] MEDS: BACLOFEN (10 MG) 10 MG TABLET PO SCH (09:03)
[2022-02-25] MEDS: GABAPENTIN 300 MG CAPSULE PO SCH (09:03)
[2022-02-25] MEDS: APIXABAN 5 MG TABLET PO SCH (09:04)
[2022-02-25 12:00] VITALS: BP 100/53
--- NOTE | 2022-02-25 15:53 | NUR ---
RN NOTE PATIENT DISCHARGED ORDERED. REPORT GIVEN AT [facility] TO AMERICO CASTRO. IV REMOVED. AMBULANCE CREW AT BEDSIDE.
== END 2022-02-25 16:12 | DRG 871 ==
LOC: ER 18:59 → TELE1 21:37
PROVIDERS: ATTEND Registered Nurse
DX: A41.9 Sepsis, unspecified organism (principal); G93.41 Metabolic encephalopathy; J69.0 Pneumonitis due to inhalation of food and vomit; J15.6 Pneumonia due to other Gram-negative bacteria; E44.0 Moderate protein-calorie malnutrition; J96.10 Chronic respiratory failure, unspecified whether with hypoxia or hypercapnia; J44.0 Chronic obstructive pulmonary disease with (acute) lower respiratory infection; I82.409 Acute embolism and thrombosis of unspecified deep veins of unspecified lower extremity; E88.09 Other disorders of plasma-protein metabolism, not elsewhere classified; Z86.16 Personal history of COVID-19; Z20.822 Contact with and (suspected) exposure to COVID-19; G35 Multiple sclerosis; F03.90 Unspecified dementia, unspecified severity, without behavioral disturbance, psychotic disturbance, mood disturbance, and anxiety; F32.A Depression, unspecified; K21.9 Gastro-esophageal reflux disease without esophagitis; Z91.040 Latex allergy status; Z95.1 Presence of aortocoronary bypass graft; Z79.01 Long term (current) use of anticoagulants; Z79.899 Other long term (current) drug therapy; Z66 Do not resuscitate; M48.00 Spinal stenosis, site unspecified; E03.9 Hypothyroidism, unspecified; G89.4 Chronic pain syndrome; D64.9 Anemia, unspecified; E83.42 Hypomagnesemia; E87.6 Hypokalemia; I10 Essential (primary) hypertension; Z98.82 Breast implant status; Z87.19 Personal history of other diseases of the digestive system; Y95 Nosocomial condition
CPT/HCPCS: 36415; 36600; 71045-TC; 80048-TC; 80076-TC; 80202-TC; 81001; 82803-TC; 83605-TC; 83735-TC; 84100-TC; 84484-TC; 85025-TC; 85730-TC; 87040-TC; 87081-TC; 87086-TC; 92526; 92611-TC; 94799-TC; C9803; G0378; J2270; J2543; J3370; J3475; J3480; J7030; J7050; J7060

== ENCOUNTER 2022-04-08 08:28 | Inpatient (IN) | payer MEDICARE, OTHER ==
[~2022-04-08] VITALS: Ht 152.4 cm; Wt 44.9 kg
[~2022-04-08 08:28] MED LIST changes: -ACET-2605 PO; +ALBU2.5V38 IH; +AMIN30LI2 PO; -BENZ200C53 PO; -BUPR2TAB3 SL; +CALC1TAB30 PO; +CICL34.6 TP; -CICL6.6S5 TP; -CRAN3875 PO; -CRAN425C6 PO; -DIPH25CA51 PO; -GUAI400T93 PO; +IPRA0.2S9 IH; -IPRA3AMP23 IH; -LOSA100T31 PO; -LOSA25TA27 PO; +MAG30ORA PO; +MAGN400O6 PO; +MAGN400T26 PO; -MELA1TAB47 PO; +MULT-447 PO; +ONDA4TAB11 PO; -POTA20TA83 PO; +ZINC170P TP; +ZINC50TA69 PO
--- NOTE | 2022-04-08 08:36 | NUR ---
BIB RA [facility] O2SAT IN THE 30'S. PT PLACED ON NONREBREATHER 15L O2 SAT 88%. PT ATTCHED OT MONITOR, PT IS TACHY, LABORED BREATHING, AWARE. DR CLAUDIO AND RT AT BEDSIDE.
--- NOTE | 2022-04-08 08:38 | NUR ---
covid antigen swab done and sent to the lab
--- NOTE | 2022-04-08 08:39 | NUR ---
blood specimen collected and sent to the lab
--- NOTE | 2022-04-08 08:47 | NUR ---
GISELLA PIERCE (DAUGHTER/DPOA) [phone]. DR. CLAUDIO SPOKE WITH DAUGHTER AND CONFIRMED DNR/DNI CODE STATUS.
[2022-04-08 08:49] LABS: BASOPHILS # (AUTO) 0.4 K/uL (0.0-0.2); BASOPHILS % (AUTO) 1.2 % (0.0-2.0); EOSINOPHILS % (AUTO) 0.8 % (0.0-6.0); HEMATOCRIT 34 % (33-45); HEMOGLOBIN 10.7 g/dL (11.5-14.8); LYMPHOCYTES # (AUTO) 14.2 K/uL (0.8-4.8); LYMPHOCYTES % (AUTO) 45.1 % (20.0-44.0); MEAN CORPUSCULAR HGB CONC 31 g/dl (31.0-36.0); MEAN CORPUSCULAR VOLUME 99 fL (82-100); MONOCYTES # (AUTO) 2.4 K/uL (0.1-1.30); MONOCYTES % (AUTO) 7.6 % (2.0-12.0); NEUTROPHILS # (AUTO) 14.3 K/uL (1.8-8.9); NEUTROPHILS % (AUTO) 45.3 % (43.0-81.0); PLATELET COUNT (AUTO) 697 K/uL (150-450); RED BLOOD CELL COUNT(AUTO) 3.43 MIL/uL (4.0-5.2)
[2022-04-08 08:59] LABS: WHITE BLOOD COUNT (AUTO) 31.5 K/uL (4.3-11.0)
[2022-04-08] MEDS ORDERED: VANCOMYCIN 1 GM in IV D5W 250 ML IV ONE (09:00)
[2022-04-08] MEDS ORDERED: IV NS 0.9% 1,000 ML BAG IV ONE (09:00)
[2022-04-08] MEDS ORDERED: PIPERACILLIN /TAZOBACTAM 3.375 G in IV D5W 50 ML IV ONE (09:00)
[2022-04-08 09:16] LABS: CALCIUM, SERUM 8.9 mg/dL (8.5-10.1); CARBON DIOXIDE 25 mmol/L (21-32); CHLORIDE 109 mmol/L (98-107); CREATININE 0.8 mg/dL (0.6-1.3); GLUCOSE 216 mg/dL (74-106); POTASSIUM 3.3 mmol/L (3.5-5.1); SODIUM SERUM 145 mmol/L (136-145); UREA NITROGEN, BLOOD 20 mg/dL (7-18)
[2022-04-08 09:22] LABS: ALANINE AMINOTRANSFERASE 19 U/L (12-78); ALBUMIN 2.5 g/dL (3.4-5.0); ALKALINE PHOSPHATASE 372 U/L (46-116); ASPARTATE AMINOTRANSFERASE 21 U/L (15-37); BILIRUBIN,DIRECT 0.1 mg/dL (0.0-0.2); BILIRUBIN,TOTAL 0.4 mg/dL (0.2-1.0); TOTAL PROTEIN, SERUM 7.8 g/dL (6.4-8.2)
--- NOTE | 2022-04-08 09:22 | NUR ---
urine collected and sent
[2022-04-08] MEDS ORDERED: BUPR2TAB3 SL (09:23)
[2022-04-08] MEDS ORDERED: ASCO-352 PO (09:23)
[2022-04-08] MEDS ORDERED: ZINC56.713 TP (09:23)
--- NOTE | 2022-04-08 10:22 | NUR ---
RT AT BEDSIDE SUCTIONING
--- NOTE | 2022-04-08 10:26 | NUR ---
RT AT THE BEDSIDE FOR ABG
[2022-04-08 10:39] LABS: ABG BASE EXCESS -1.8 mmol/L; ABG PCO2 42.3 mmHg (35.0-45.0); ABG PH 7.363 (7.350-7.450); COHb 0.3 % (0.5-1.5); O2Hb 94.5 % (94.0-97.0); SITE, ABG Right Radial; VENT MODE, BG NRB
[2022-04-08 10:47] LABS: BILIRUBIN,URINE NEGATIVE (NEGATIVE); COLOR,URINE YELLOW (YELLOW); LEUKOCYTE ESTERASE ,URINE NEGATIVE (NEGATIVE); NITRITE, URINE NEGATIVE (NEGATIVE); PROTEIN,URINE TRACE mg/dl (NEGATIVE); UGLUCOSE NEGATIVE (NEGATIVE); UROBILINOGEN,URINE 0.2 EU/dL (0.2)
[2022-04-08 10:56] LABS: BACTERIA,URINE Few /HPF (None Seen); SQUAMOUS EPITHELIAL CELL,UR Few /HPF (None Seen); YEAST,URINE Moderate /HPF (None Seen)
[2022-04-08 10:57] LABS: MUCUS,URINE Few /LPF (None Seen)
[2022-04-08] MEDS ORDERED: ALBUTEROL FS 2.5 MG/3 ML VIAL.NEB CONTNEB SCH (11:00)
[2022-04-08] MEDS ORDERED: ENOXAPARIN SODIUM 40 MG/0.4 ML DISP.SYRIN SQ SCH (11:00)
[2022-04-08] MEDS ORDERED: IV D5/ 0.9% NACL 1,000 ML IV PRN (11:00)
[2022-04-08 11:18] LABS: BAND % (MANUAL) 1 % (0.0-5.0); EOSINOPHILS % (MANUAL) 1 % (0-4); LYMPHOCYTES % (MANUAL) 35 % (16-48); MONOCYTES % (MANUAL) 6 % (0-11.0); NEUTROPHILS % (MANUAL) 54 (42-76)
[2022-04-08 11:19] LABS: METAMYELOCYTES % 3 % (0-0)
[2022-04-08] MEDS ORDERED: ONDANSETRON HCL/PF 4 MG/2 ML VIAL IVP PRN ×2 (11:30→12:30)
[2022-04-08] MEDS ORDERED: ACETAMINOPHEN 325 MG TABLET PO PRN ×2 (11:30→12:30)
[2022-04-08] MEDS ORDERED: IPRATROPIUM NEB FS 0.5 MG/2.5 ML AMPUL.NEB NEB SCH (11:30)
--- NOTE | 2022-04-08 11:52 | NUR ---
BED GIVEN 112-1
--- NOTE | 2022-04-08 12:02 | NUR ---
REPORT GIVEN TO NORAH FOR BRIGIDO
--- NOTE | 2022-04-08 12:14 | NUR ---
PT TRANPSORTED TO TELE FLOOR AND RECIEVED BY NURSE AYLA
--- NOTE | 2022-04-08 13:00 | NUR ---
MERE RN NOTE RECEIVED PATIENT FROM ER WITH DX SEPSIS ,ALERT ORIENTED X2 ON NONREBREATHER MASK 15L SATURATION 88% AT THIS TIME, ON DNR\ DNI STATUS , ON TELE MONITOR ST HR 2=135 AT THIS TIME, WITH RICARDO CATH TO GRAVITY WITH YELLOW COLOR URINE , NEW HL LT LT FA INSERTED WITH GOOD BLOOD RETURN , BED IN LOWEST AND LOCKED POSITION , CALL LIGHT WITHIN REACH
[2022-04-08 13:04] VITALS: BP 143/35
[2022-04-08] MEDS: IPRATROPIUM NEB FS 0.5 MG/2.5 ML AMPUL.NEB NEB SCH ×2 (13:33→20:18)
[2022-04-08] MEDS: ALBUTEROL HALF STRENGTH 1.25 MG/3 ML VIAL.NEB NEB SCH ×3 (13:34→20:18)
[2022-04-08] MEDS: ENOXAPARIN SODIUM 40 MG/0.4 ML DISP.SYRIN SQ SCH (13:34)
[2022-04-08] MEDS: IV D5/ 0.9% NACL 1,000 ML IV PRN (13:36)
--- NOTE | 2022-04-08 14:03 | NUR ---
MERE RN NOTES PT COMPLAINS OF SEVERE HIP AND BACK PAIN. NPO, UNABLE TO TAKE PO MEDS. ANANT WORRELL NOTIFIED. ORDERED PRN Q6H MORPHINE 2MG VIA IV. WILL F/U.
[2022-04-08] MEDS: MORPHINE SULFATE INJ 2 MG/ML DISP.SYRIN IV PRN (14:13)
[2022-04-08] MEDS ORDERED: PIPERACILLIN /TAZOBACTAM 3.375 G in IV D5W 100 ML IV SCH (16:00)
[2022-04-08 16:58] VITALS: BP 140/80
[2022-04-08] MEDS: PIPERACILLIN /TAZOBACTAM 3.375 G in IV D5W 100 ML IV SCH ×2 (17:06→23:52)
--- NOTE | 2022-04-08 17:17 | NUR ---
serafin rn note noted severe congestion and saturation 80% and hr 145 called to [facility] with order deep suction by rt will f\u
--- NOTE | 2022-04-08 17:31 | NUR ---
television director note rt at bedside, mod amt of white secretion obtained , saturation 89% , will f]u
--- NOTE | 2022-04-08 18:51 | NUR ---
MERE CLOSING NOTE PATIENT ALERT/ORIENTED X2 ON NONREBREATHER MASK 15L WITH AN O2 SAT OF 88%, ON DNR\ DNI STATUS, ON TELE MONITOR ST HR 135 AT THIS TIME, WITH RICARDO CATH DRAINING WELL WITH YELLOW/[place] COLORED URINE, WITH HL ON LT FA, ANTIBIOTIC CURRENTLY BEING ADMINISTERED. BED IN LOWEST AND LOCKED POSITION, CALL LIGHT WITHIN REACH. KEPT PATIENT CLEAN AND NEEDS ATTENDED. RESTING COMFORTABLY AT THIS TIME. WILL ENDORSE TO NEXT NURSE ON DUTY FOR CONTINUATION OF CARE.
--- NOTE | 2022-04-08 19:15 | NUR ---
RN NOTE PT RECEIVED IN BED, FAMILY AT BEDSIDE. PT IS ON NRB AT 15L WITH CURRENT OXYGEN SATURATION >95%. PT IS A/OX2. ON TELE MONITOR SHOWING ST WITH DR. ERVIN. [place] CATH NOTED. PT CURRENTLY NPO PENDING SWALLOW EVAL. IV ACCESS NOTED ON LEFT FA #22, LINE FLUSHED, PATENT, AND INTACT WITH NO INFILTRATION. ALL SAFETY MEASURES IMPLEMENTED. HOB ELEVATED. CALL LIGHT WITHIN REACH. BED LOCKED AND IN LOWEST POSITION. SIDE RAILS UP. WILL CONTINUE TO MONITOR AND ASSESS FOR ANY CHANGES DURING SHIFT.
[2022-04-08 20:00] VITALS: BP 144/78
[2022-04-08] MEDS ORDERED: VANCOMYCIN 500 MG in IV D5W 100 ML IV SCH (21:00)
[2022-04-08] MEDS ORDERED: VANCOMYCIN 1 GM VIAL ONE (21:18)
[2022-04-08] MEDS: VANCOMYCIN 500 MG in IV D5W 100 ML IV SCH (21:27)
--- NOTE | 2022-04-08 21:35 | NUR ---
RN NOTE SPOKE WITH THAD REGARDING NO VANCO BEING IN CASSETTE FOR SCHEDULED 2100 DOSE. RN LVN PULLED OUT 1 GRAM VANCO D/T NO 500 MG IN OMNICELL. PER THAD, OKAY TO GIVE HALF OF BAG AT RATE OF 100 CC/HR WITH VTBI SET AT 125CC/HR. ORDER NOTED.
[2022-04-08] MEDS ORDERED: PIPERACILLIN /TAZOBACTAM 3.375 G VIAL IV ONE (23:48)
[2022-04-09] VITALS: BP 125/68
[2022-04-09] MEDS: IPRATROPIUM NEB FS 0.5 MG/2.5 ML AMPUL.NEB NEB SCH ×6 (00:10→23:37)
--- NOTE | 2022-04-09 01:15 | NUR ---
RN NOTE PT COMPLAINING OF 10/10 GENERALIZED PAIN. MORPHINE GIVEN PER MD ORDER. BP 125/68 WITH CURRENT OXYGEN SATURATION AT 98%. WILL CONTINUE TO MONITOR.
[2022-04-09] MEDS: MORPHINE SULFATE INJ 2 MG/ML DISP.SYRIN IV PRN (01:18)
[2022-04-09 04:00] VITALS: BP 125/65
--- NOTE | 2022-04-09 04:30 | NUR ---
RN NOTE PT HEART NOW 114. RESTING IN BED COMFORTABLY. OXYGEN SATURATION CURRENTLY >98%.
[2022-04-09] MEDS: ALBUTEROL HALF STRENGTH 1.25 MG/3 ML VIAL.NEB NEB SCH ×4 (04:47→20:13)
--- NOTE | 2022-04-09 06:48 | NUR ---
RN NOTE NO CHANGES IN PT CONDITION DURING SHIFT. IV ACCESS NOTED ON LEFT FA #22, LINE FLUSHED, PATENT, AND INTACT WITH NO INFILTRATION. ALL SAFETY MEASURES IMPLEMENTED. PT KEPT CLEAN AND COMFORTABLE. ALL DUE MEDS GIVEN ORDERED. HOB ELEVATED. CALL LIGHT WITHIN REACH. BED LOCKED AND IN LOWEST POSITION. SIDE RAILS UP. WILL ENDORSE TO MORNING SHIFT RN FOR BRIGIDO.
--- NOTE | 2022-04-09 07:35 | NUR ---
RN OPENING NOTES RECEIVED PATIENT RESTING IN BED A/OX3 ON NRB MASK 15L RUNNING. PATIENT DOES NOT CURRENTLY COMPLAIN OF SOB OR PAIN. PATIENT IS ON TELE MONITOR. RICARDO CATHETER NOTED. PATIENT IS CURRENTLY NPO PENDING SWALLOW EVALUATION. IV ACCESS ON LEFT FA 22g RUNNING D2NS @100MLS HR. SAFETY MEASURE IN PLACE, BED ALARM ACTIVATE, CALL LIGHT WITHIN REACH, BED LOCKED IN THE LOWEST POSITION.
[2022-04-09 07:43] LABS: HEMATOCRIT 29 % (33-45); HEMOGLOBIN 10.1 g/dL (11.5-14.8); LYMPHOCYTES # (AUTO) 2.3 K/uL (0.8-4.8); LYMPHOCYTES % (AUTO) 6.3 % (20.0-44.0); MEAN CORPUSCULAR HGB CONC 34 g/dl (31.0-36.0); MEAN CORPUSCULAR VOLUME 98 fL (82-100); MONOCYTES # (AUTO) 2.2 K/uL (0.1-1.30); MONOCYTES % (AUTO) 5.8 % (2.0-12.0); NEUTROPHILS # (AUTO) 32.8 K/uL (1.8-8.9); NEUTROPHILS % (AUTO) 87.9 % (43.0-81.0); PLATELET COUNT (AUTO) 546 K/uL (150-450)
[2022-04-09 07:51] LABS: CALCIUM, SERUM 8.7 mg/dL (8.5-10.1); CREATININE 0.8 mg/dL (0.6-1.3); MAGNESIUM 1.6 mg/dL (1.8-2.4); PHOSPHORUS 1.8 mg/dL (2.5-4.9)
[2022-04-09 08:00] VITALS: BP 120/68
[2022-04-09 08:03] LABS: WHITE BLOOD COUNT (AUTO) 37.4 K/uL (4.3-11.0)
[2022-04-09] MEDS: VANCOMYCIN 500 MG in IV D5W 100 ML IV SCH ×2 (08:13→21:39)
[2022-04-09] MEDS: ENOXAPARIN SODIUM 40 MG/0.4 ML DISP.SYRIN SQ SCH (08:14)
[2022-04-09 08:31] LABS: POTASSIUM 2.7 mmol/L (3.5-5.1)
[2022-04-09 09:03] LABS: BAND % (MANUAL) 3 % (0.0-5.0); LYMPHOCYTES % (MANUAL) 9 % (16-48); MONOCYTES % (MANUAL) 4 % (0-11.0); NEUTROPHILS % (MANUAL) 84 (42-76)
[2022-04-09] MEDS ORDERED: Magnesium 1 GM/2 ML VIAL IV ONE (09:30)
[2022-04-09] MEDS: PIPERACILLIN /TAZOBACTAM 3.375 G in IV D5W 100 ML IV SCH ×2 (09:46→17:20)
[2022-04-09] MEDS: POTASSIUM CL. PREMIX PERIPHER. 50 ML IV SCH ×4 (10:22→13:57)
[2022-04-09] MEDS: ACETYLCYSTEINE 10% SOLN 400 MG/4 ML VIAL NEB SCH ×3 (10:32→23:37)
[2022-04-09] MEDS: Magnesium 1GM/D5W 100ML PREMIX 100 ML IV SCH ×2 (11:24→12:38)
[2022-04-09 12:00] VITALS: BP 135/67
[2022-04-09 16:00] VITALS: BP 137/75
[2022-04-09] MEDS: IV D5/ 0.9% NACL 1,000 ML IV PRN (17:22)
[2022-04-09] MEDS: POTASSIUM PHOSPHATE MM 7.5 MMOL in IV NS 0.9% 100 ML IV SCH ×2 (17:27→20:28)
[2022-04-09] MEDS ORDERED: SCOPOLAMINE PATCH 1 MG/72HR TD SCH (17:30)
--- NOTE | 2022-04-09 19:00 | NUR ---
RN CLOSING NOTES RECEIVED PATIENT RESTING IN BED A/OX3 ON NRB MASK 15L RUNNING. PATIENT DOES NOT CURRENTLY COMPLAIN OF SOB OR PAIN. PATIENT IS ON TELE MONITOR. RICARDO CATHETER NOTED. PATIENT IS CURRENTLY NPO PENDING SWALLOW EVALUATION. IV ACCESS ON LEFT FA. SAFETY MEASURE IN PLACE, BED ALARM ACTIVATE, CALL LIGHT WITHIN REACH, BED LOCKED IN THE LOWEST POSITION. WILL ENDORSE TO NIGHT NURSE FOR BRIGIDO.
--- NOTE | 2022-04-09 19:30 | NUR ---
RN NOTE PT RECEIVED IN BED, FAMILY AT BEDSIDE. PT IS ON NRB AT 15L. RESTING COMFORTABLY. ALL SAFETY MEASURES IMPLEMENTED. HOB ELEVATED. CALL LIGHT WITHIN REACH. BED LOCKED AND IN LOWEST POSITION. SIDE RAILS UP. WILL CONTINUE TO MONITOR AND ASSESS FOR ANY CHANGES DURING SHIFT.
[2022-04-09 20:00] VITALS: BP 151/85
[2022-04-09] MEDS ORDERED: MORPHINE SULFATE INJ 2 MG/ML DISP.SYRIN IV PRN (20:30)
--- NOTE | 2022-04-09 21:00 | NUR ---
RN NOTE RESTRAINT TAKEN OFF PATIENT. NOT REQUIRED.
[2022-04-10] VITALS: BP 151/86
--- NOTE | 2022-04-10 00:57 | NUR ---
RN NOTE SPOKE WITH DR. ANG ABOUT BLOOD LEAKING FROM PATIENT NOSE. DR. ANG ORDERED STAT H/H AND TO LET HIM KNOW IF IT IS BELOW 7. ORDER NOTED AND CARRIED OUT. WILL MONITOR.
[2022-04-10] MEDS: PIPERACILLIN /TAZOBACTAM 3.375 G in IV D5W 100 ML IV SCH (01:04)
[2022-04-10 01:24] LABS: HEMOGLOBIN 8.2 g/dL (11.5-14.8)
--- NOTE | 2022-04-10 01:31 | NUR ---
RN NOTE INFORMED DR. ANG ABOUT STAT HEMOGLOBIN BEING 8.2 WITH PREVIOUS BEFORE THAT BEING 10.1. SAID H/H IN AM WITH NO FURTHER ORDERS.
--- NOTE | 2022-04-10 02:00 | NUR ---
RT NOTE LATE ENTRY Pt on NRB 15lpm. NT sx patient for large amount of thick bloody secretions. will continue to monitor closely.
--- NOTE | 2022-04-10 02:08 | NUR ---
0208 Called patient's daughter Arline and notified her of patient's change of condition. Explained to her that patient is non responsive, HR in the 40s and dropping, with O2 saturation in the 70s on NRM. Reassured her that we are keeping patient as comfortable as possible. She asked to be updated on patient's condition.
--- NOTE | 2022-04-10 02:25 | NUR ---
0225 Reassessed patient, noted to be non responsive to tactile stimuli. Unable to appreciate blood pressure. No pulses palpable when checked. No signs of rise and fall of chest. Skin pale in color and pupils fixed and dilated. Pronounced by charge nurse at this time.
--- NOTE | 2022-04-10 02:25 | NUR ---
RN NOTE PT . GEODETIC SURVEYOR ELEUTERIO AT BEDSIDE.
--- NOTE | 2022-04-10 02:28 | NUR ---
0228 Dr Valero notified of patient's .
--- NOTE | 2022-04-10 02:37 | NUR ---
RN NOTE SPOKE WITH [facility], BANDAR. [id number].
== END 2022-04-10 02:25 | DRG 871 ==
LOC: ER 08:28 → TELE-TD 12:52
PROVIDERS: ADMIT Nurse Practitioner Acute Care; ATTEND Nurse Practitioner Acute Care
PROC: 05HB33Z Insertion of Infusion Device into Right Basilic Vein, Percutaneous Approach (ICD-10-PCS; principal; 2022-04-09)
DX: A41.9 Sepsis, unspecified organism (principal); G93.41 Metabolic encephalopathy; J18.9 Pneumonia, unspecified organism; J96.21 Acute and chronic respiratory failure with hypoxia; E44.0 Moderate protein-calorie malnutrition; J44.0 Chronic obstructive pulmonary disease with (acute) lower respiratory infection; E86.0 Dehydration; Z20.822 Contact with and (suspected) exposure to COVID-19; Z66 Do not resuscitate; E88.09 Other disorders of plasma-protein metabolism, not elsewhere classified; F03.90 Unspecified dementia, unspecified severity, without behavioral disturbance, psychotic disturbance, mood disturbance, and anxiety; I10 Essential (primary) hypertension; K21.9 Gastro-esophageal reflux disease without esophagitis; E03.9 Hypothyroidism, unspecified; E83.42 Hypomagnesemia; E87.6 Hypokalemia; G89.4 Chronic pain syndrome; G35 Multiple sclerosis; Z91.048 Other nonmedicinal substance allergy status; Z79.51 Long term (current) use of inhaled steroids; Z79.01 Long term (current) use of anticoagulants; Z79.899 Other long term (current) drug therapy; Z86.16 Personal history of COVID-19; Y95 Nosocomial condition; M48.00 Spinal stenosis, site unspecified; Z86.718 Personal history of other venous thrombosis and embolism
CPT/HCPCS: 31720; 36415; 36600; 71045-TC; 80048-TC; 80076-TC; 81001; 83605-TC; 83735-TC; 84100-TC; 84484-TC; 85025-TC; 85027-TC; 85730-TC; 87040-TC; 87086-TC; 92526; 92611-TC; 94668-TC; 94799-TC; C9803; G0378; J1650; J2270; J2543; J3370; J3475; J3480; J3490; J7030; J7042; J7050; J7060